=== PATIENT | female | born 1990 | race Two or more races ===

== ENCOUNTER 2016-11-30 01:07 | Emergency (ER) | payer MEDICAID ==
[~2016-11-30] VITALS: Ht 154.9 cm; Wt 122.5 kg
[~2016-11-30 01:07] MED LIST: FERR325T50 PO; PREN-96 PO
[2016-11-30] MEDS ORDERED: SODIUM CHLORIDE 0.9% 1,000 ML IVB ONE (02:17)
[2016-11-30] MEDS ORDERED: SODIUM CHLORIDE 0.9% 1,000 ML IV ONE (02:23)
[2016-11-30 02:50] LABS: Basophils # (auto) 0 uL; Basophils % (auto) 0.3 % (0.0-2.0); Eosinophils # (auto) 0.5 uL; Hemoglobin 12.2 g/dL (12.2-16.2); Lymphocytes # (auto) 2.5 uL; Lymphocytes % (auto) 28.5 % (10.0-50.0); Mean Corpuscular Volume 88.1 fL (80.0-100.0); Mean Platelet Volume 8.1 fL (7.4-10.4); Monocytes # (auto) 0.7 uL; Monocytes % (auto) 8.5 % (0.0-12.0); Neutrophils % (auto) 56.7 % (37.0-80.0); Platelet Count (auto) 270 10^3/uL (140-450); Red Cell Distribution Width 14.8 % (11.6-16.0); White Blood Cell 8.8 10^3/uL (4.4-10.8)
[2016-11-30 02:56] LABS: Urine Bilirubin Negative (Negative); Urine Color Yellow (Yellow); Urine Glucose Normal (Normal); Urine Ketone Negative (Negative); Urine Mucus FEW (None Seen); Urine Nitrite Negative (Negative); Urine RBC 1 /hpf (0 - 4); Urine Squamous Epithelial Cell FEW /hpf (<5); Urine Urobilinogen Normal (Negative)
[2016-11-30 03:33] LABS: Anion Gap 8 (5-15); Blood Urea Nitrogen 14 mg/dL (7-18); Calcium 7.9 mg/dL (8.5-10.1); Carbon Dioxide 26 mmol/L (21-32); Chloride 106 mmol/L (98-107); Glucose 86 mg/dL (74-106); Potassium 3.6 mmol/L (3.5-5.1); Sodium 140 mmol/L (136-145)
[2016-11-30 03:35] LABS: Amylase 38 U/L (25-115); Aspartate Aminotransferase 23 U/L (15-37); BUN/Creatinine Ratio 19.4; GFR African American 124 mL/min; GFR Non-African American 103 mL/min
[2016-11-30 03:40] LABS: Alkaline Phosphatase 42 U/L (45-117); Bilirubin, Total 0.3 mg/dL (0.2-1.0); Total Protein 6.6 g/dL (6.4-8.2)
[2016-11-30 03:42] LABS: Urine Blood 1+ /uL (Negative)
[2016-11-30 05:48] VITALS: BP 127/78
== END 2016-11-30 05:49 | disposition home or self-care (01) ==
LOC: ER 01:09
DX: N93.9 Abnormal uterine and vaginal bleeding, unspecified (principal); R10.9 Unspecified abdominal pain
CPT/HCPCS: 36415; 76801; 76817; 80053; 81001; 82150; 83690; 84484; 84702; 85025; 86901; 96360; 99285; J7030

== ENCOUNTER 2018-02-08 15:15 | Emergency (ER) | payer MEDICAID ==
[~2018-02-08] VITALS: Ht 154.9 cm; Wt 108.9 kg
[2018-02-08] MEDS ORDERED: KETOROLAC TROMETH 30 MG/ML 1ML VIAL IV ONE (16:15)
[2018-02-08 18:30] VITALS: BP 188/102
== END 2018-02-08 19:05 | disposition home or self-care (01) ==
LOC: EDBD 15:15 → EDUNIT# 15:15 → ER 15:18
DX: S86.812A Strain of other muscle(s) and tendon(s) at lower leg level, left leg, initial encounter (principal); W50.0XXA Accidental hit or strike by another person, initial encounter; Y93.89 Activity, other specified; Y99.8 Other external cause status; Y92.89 Other specified places as the place of occurrence of the external cause
CPT/HCPCS: 29505; 73700; 96374; 99284; J1885

== ENCOUNTER 2018-07-20 01:44 | Emergency (ER) | payer MEDICAID ==
[~2018-07-20] VITALS: Ht 154.9 cm; Wt 114.8 kg
[2018-07-20] MEDS ORDERED: SODIUM CHLORIDE 0.9% 1,000 ML IVB ONE (02:12)
[2018-07-20] MEDS ORDERED: HYDROmorphone HCL 2 MG/ML VL IV ONE (02:15)
[2018-07-20] MEDS ORDERED: ONDANSETRON HCL 4 MG/2 ML VIAL IV ONE (02:15)
[2018-07-20 02:21] LABS: Basophils # (auto) 0.1 uL; Basophils % (auto) 0.5 % (0.0-2.0); Eosinophils # (auto) 0.3 uL; Eosinophils % (auto) 3.1 % (0.0-7.0); Hematocrit 34.7 % (36.0-46.0); Hemoglobin 11.8 g/dL (12.2-16.2); Lymphocytes # (auto) 1.9 uL; Mean Corpuscular Hemoglobin 29.2 pg (28.0-32.0); Mean Corpuscular Volume 85.8 fL (80.0-100.0); Monocytes # (auto) 0.6 uL; Monocytes % (auto) 5.4 % (0.0-12.0); Neutrophils # (auto) 7.7 uL; Platelet Count (auto) 278 10^3/uL (140-450); Red Blood Cells 4.05 10^6/uL (4.0-5.20); Red Cell Distribution Width 14.1 % (11.8-14.3); White Blood Cell 10.6 10^3/uL (4.4-10.8)
[2018-07-20 02:39] LABS: Albumin 3.5 g/dL (3.4-5.0); BUN/Creatinine Ratio 20.7; Calcium 8.9 mg/dL (8.5-10.1); Potassium 3.1 mmol/L (3.5-5.1)
[2018-07-20 02:41] LABS: Bilirubin, Total 0.4 mg/dL (0.2-1.0); Total Protein 7.6 g/dL (6.4-8.2)
[2018-07-20 02:47] LABS: Urine Bacteria FEW /hpf (None Seen); Urine Blood 3+ /uL (Negative); Urine Mucus FEW (None Seen); Urine Specific Gravity 1.028 (1.001-1.035); Urine WBC 329 /hpf (0 - 5)
[2018-07-20 03:08] LABS: INR 0.91 (0.9-1.15); Partial Thromboplastin Time 22.4 sec (23.78-33.04); Prothrombin Time 9.8 sec (9.27-12.13)
[2018-07-20 05:26] VITALS: BP 177/100
== END 2018-07-20 05:59 | disposition home or self-care (01) ==
LOC: EDBD 01:44 → ER 01:49
DX: O20.0 Threatened abortion (principal); Z3A.01 Less than 8 weeks gestation of pregnancy
CPT/HCPCS: 36415; 76801; 76817; 80053; 81001; 81025; 84702; 85025; 85610; 85730; 86850; 86900; 86901; 96361; 96374; 96375; 99284; J1170; J2405; J7030

== ENCOUNTER 2019-07-06 20:49 | Inpatient (IN) | payer MEDICAID ==
[~2019-07-06] VITALS: Ht 154.9 cm; Wt 119.9 kg
[2019-07-06] MEDS ORDERED: cloNIDine HCL 0.1 MG TAB ONE (21:03)
[2019-07-06] MEDS ORDERED: IPRATROPIUM BROM 0.5 MG/2.5ML INH SOL NEB ONE (21:15)
[2019-07-06] MEDS ORDERED: ALBUTEROL SULF 2.5 MG/0.5ML(0.5%) NEB SOLN NEB ONE (21:15)
[2019-07-06] MEDS ORDERED: cloNIDine HCL 0.1 MG TAB PO ONE (21:15)
[2019-07-06 21:40] LABS: Basophils # (auto) 0.1 uL; Basophils % (auto) 0.9 % (0.0-2.0); Eosinophils # (auto) 0.2 uL; Eosinophils % (auto) 2.5 % (0.0-7.0); Hematocrit 37.5 % (36.0-46.0); Hemoglobin 12.3 g/dL (12.2-16.2); Lymphocytes % (auto) 10.1 % (10.0-50.0); Mean Corpuscular Hgb Conc. 32.7 g/dL (32.0-36.0); Mean Corpuscular Volume 82.6 fL (80.0-100.0); Monocytes # (auto) 0.6 uL; Monocytes % (auto) 6.4 % (0.0-12.0); Neutrophils # (auto) 7.7 uL; Neutrophils % (auto) 80.1 % (37.0-80.0); Nucleated Red Blood Cells % 0.1 %; Platelet Count (auto) 277 10^3/uL (140-450); Red Blood Cells 4.55 10^6/uL (4.0-5.20); White Blood Cell 9.6 10^3/uL (4.4-10.8)
[2019-07-06 21:50] LABS: Albumin 2.9 g/dL (3.4-5.0); BUN/Creatinine Ratio 8.1; Potassium 3.3 mmol/L (3.5-5.1)
[2019-07-06 21:53] LABS: Bilirubin, Total 0.5 mg/dL (0.2-1.0); Total Protein 6.6 g/dL (6.4-8.2)
[2019-07-07] MEDS ORDERED: cloNIDine HCL 0.1 MG TAB PO ONE (01:18)
[2019-07-07 01:59] LABS: Urine WBC None Seen /hpf (0 - 5)
[2019-07-07 02:26] LABS: Urine Bacteria FEW /hpf (None Seen); Urine Blood Negative /uL (Negative); Urine Hyaline Cast FEW /lpf (0 - 2); Urine Specific Gravity 1.021 (1.001-1.035)
[2019-07-07] MEDS ORDERED: LABETALOL HCL 5 MG/ML ML 20ML VIAL IV ONE ×2 (03:45→23:15)
[2019-07-07] MEDS ORDERED: ALBUTEROL SULF 2.5 MG/0.5ML(0.5%) NEB SOLN NEB ONE (03:45)
[2019-07-07] MEDS ORDERED: SODIUM CHLORIDE 0.9% 1,000 ML IV ONE (03:45)
[2019-07-07] MEDS ORDERED: IPRATROPIUM BROM 0.5 MG/2.5ML INH SOL NEB ONE (03:45)
[2019-07-07] MEDS ORDERED: IOHEXOL 350 MG/ML 100ML IJ ONE ×2 (05:57→06:03)
[2019-07-07] MEDS ORDERED: TEMAZEPAM 15 MG CAP PO PRN (07:15)
[2019-07-07] MEDS ORDERED: NITROGLYCERIN 0.4 MG SL TAB SL PRN (07:15)
[2019-07-07] MEDS ORDERED: MORPHINE SULF INJ 2 MG/ML SYRINGE 1ML IV PRN (07:15)
[2019-07-07] MEDS ORDERED: cefTRIAXone 1GM/50ML D5W 50 ML IV ONE (07:15)
[2019-07-07] MEDS ORDERED: cloNIDine HCL 0.1 MG TAB PO PRN (07:15)
[2019-07-07] MEDS ORDERED: ONDANSETRON HCL 4 MG/2 ML VIAL IV PRN (07:15)
[2019-07-07] MEDS ORDERED: ALBUTEROL SULF 2.5 MG/0.5ML(0.5%) NEB SOLN NEB PRN (07:15)
[2019-07-07] MEDS ORDERED: AZITHROMYCIN 500MG/ 250ML 250 ML IV ONE (07:15)
[2019-07-07] MEDS ORDERED: DEXTROSE (50%) 50ML SYRG IV PRN (07:45)
[2019-07-07 08:11] VITALS: BP 170/108
[2019-07-07 08:42] LABS: INR 1.05 (0.9-1.15); Partial Thromboplastin Time 24.9 sec (23.64-32.05)
--- NOTE | 2019-07-07 10:14 | NUR ---
Respiratory note: ASSESSED PT FOR PRN TX. NOT INDICATED AT THIS TIME. HR 104, SPO2 93% RA, RR 30. BS DIMINISHED. NO RESPIRATORY DISTRESS NOTED AT THIS TIME. PT KNOWS TO HAVE RT PAGED IF TX NEEDED.
[2019-07-07] MEDS: ASPirin 81 mg TAB PO SCH (10:22)
[2019-07-07] MEDS: LEVOFLOXACIN 500MG 100 ML IV SCH (10:22)
[2019-07-07] MEDS: FAMOTIDINE 20 MG TAB PO SCH ×2 (10:23→21:37)
[2019-07-07] MEDS: LISINOPRIL 20 MG TAB PO SCH (10:23)
[2019-07-07] MEDS: METOPROLOL TARTRATE 25 MG TAB PO SCH ×2 (10:23→21:37)
[2019-07-07] MEDS: InsuLIN REG 1unit/0.01ml Soln (100units/ml) SC SCH ×3 (12:00→23:34)
[2019-07-07] MEDS: ACCU-CHEK COMFORT CURVE STRIP VI SCH ×3 (13:22→23:52)
[2019-07-07] MEDS ORDERED: POTASSIUM CHL 20 Meq TABLET PO ONE (13:45)
[2019-07-07] MEDS ORDERED: amLODIPine BESYLATE 5 MG TAB PO ONE (19:45)
[2019-07-07] MEDS ORDERED: FUROSEMIDE 40 MG/4 ML VIAL IV ONE (19:45)
[2019-07-07] MEDS ORDERED: LOSARTAN POTASSIUM 50 MG TAB PO ONE (19:45)
[2019-07-07] MEDS: ACETAMINOPHEN 325 MG TAB PO PRN (19:52)
[2019-07-07 21:28] LABS: BUN/Creatinine Ratio 9.5; Calcium 7.6 mg/dL (8.5-10.1); Potassium 3.6 mmol/L (3.5-5.1)
--- NOTE | 2019-07-07 21:30 | NUR ---
RT NOTE PT WAS SEEN BY RT FOR PRN ASSESSMENT IN THE ER. PT WAS SITTING IN BED WITH CHINYERE JOHNSON AT BEDSIDE. HR 108, RR 24, BS CLEAR/DIM AT THIS TIME, POX 95% ON 3L NASAL CANNULA. PT STATES SHE IS LESS SOB AT THIS TIME AND IS NOT WHEEZING LIKE SHE WAS BEFORE. PT AWARE THERE ARE PRN TX AVAILABLE IF NEEDED. NO PRN AT THIS TIME GIVEN. CONT ORDERED Addendum: 07/07/19 at 2156 by Eugenia Marcus RT Amended: Links added.
[2019-07-07] MEDS: ATORVASTATIN 20 MG TAB PO SCH (21:37)
[2019-07-08] MEDS ORDERED: cloNIDine HCL 0.1 MG TAB PO PRN (01:15)
[2019-07-08] MEDS ORDERED: cloNIDine HCL 0.1 MG TAB ONE (02:06)
[2019-07-08] MEDS: InsuLIN REG 1unit/0.01ml Soln (100units/ml) SC SCH ×3 (06:00→17:37)
[2019-07-08 06:07] LABS: Basophils # (auto) 0.1 uL; Basophils % (auto) 0.7 % (0.0-2.0); Eosinophils # (auto) 0.6 uL; Eosinophils % (auto) 6.6 % (0.0-7.0); Hematocrit 35.5 % (36.0-46.0); Hemoglobin 11.7 g/dL (12.2-16.2); Lymphocytes % (auto) 11.4 % (10.0-50.0); Mean Corpuscular Hemoglobin 27.5 pg (28.0-32.0); Mean Corpuscular Hgb Conc. 33.1 g/dL (32.0-36.0); Mean Corpuscular Volume 83.2 fL (80.0-100.0); Monocytes # (auto) 0.7 uL; Neutrophils # (auto) 6.3 uL; Neutrophils % (auto) 73.3 % (37.0-80.0); Platelet Count (auto) 255 10^3/uL (140-450); Red Blood Cells 4.26 10^6/uL (4.0-5.20); White Blood Cell 8.6 10^3/uL (4.4-10.8)
[2019-07-08] MEDS: ACCU-CHEK COMFORT CURVE STRIP VI SCH ×3 (06:14→17:37)
[2019-07-08] MEDS: FUROSEMIDE 40 MG/4 ML VIAL IV SCH ×2 (06:15→17:40)
[2019-07-08] MEDS: ACETAMINOPHEN 325 MG TAB PO PRN ×2 (06:21→17:38)
[2019-07-08 06:24] LABS: Calcium 7.8 mg/dL (8.5-10.1); Potassium 3.7 mmol/L (3.5-5.1)
[2019-07-08 06:27] LABS: BUN/Creatinine Ratio 11.2
--- NOTE | 2019-07-08 08:35 | NUR ---
Telemetry admit from ER Patient admitted to Telemetry unit after SBAR received from RNCasandra. Patient oriented to primary RN, unit, room, bed, and unit policies regarding patient care and visiting hours. Patient now on continuous telemetry monitoring, tele box #50 and telemetry reading on arrival to unit is sinus tachycardia in the low 100's. Patient placed on bedside oxygen at 3L via nasal cannula, weighed by bed scale and encouraged to call if they need something. Bed in lowest, locked position with side rails up x2 and call light within reach. All questions and concerns addressed, patient verbalized understanding. Will continue to monitor Q1hr/PRN.
--- NOTE | 2019-07-08 09:20 | NUR ---
SPOKE TO HE STATED HE SAW PATENT IN THE ER. RN NOTIFIED.
[2019-07-08 09:27] VITALS: BP 146/96
[2019-07-08] MEDS ORDERED: LOSARTAN POTASSIUM 50 MG TAB PO SCH (10:00)
--- NOTE | 2019-07-08 10:10 | NUR ---
O2 SAT Patient 02 saturation level at 90% on 3L via nasal cannula. Patient states she feels short of breath and is using accessory muscles for breathing. Increased oxygen to 5L, reassessed saturation level which increased to 95%. Patient states she feels "much better" with increased oxygen. Will continue to monitor.
[2019-07-08] MEDS: LEVOFLOXACIN 500MG 100 ML IV SCH (10:37)
[2019-07-08] MEDS: FAMOTIDINE 20 MG TAB PO SCH ×2 (10:37→22:09)
[2019-07-08] MEDS: ASPirin 81 mg TAB PO SCH (10:38)
[2019-07-08] MEDS: METOPROLOL TARTRATE 50 MG TAB PO SCH ×2 (10:38→22:08)
[2019-07-08] MEDS: amLODIPine BESYLATE 5 MG TAB PO SCH (10:39)
[2019-07-08] MEDS: LISINOPRIL 20 MG TAB PO SCH (10:39)
[2019-07-08 13:00] VITALS: BP 116/77
--- NOTE | 2019-07-08 13:12 | NUR ---
ASSESSED PT FOR MED NEB PRN BREATHING TX, PT ON 3L NC WITH SPO2 97%, HR 98 RR 20 WITH DIMINISHED BS. PT IN NO DISTRESS. MED NEB NOT INDICATED. PT MADE AWARE OF PRN MED NEB
[2019-07-08] MEDS ORDERED: POTASSIUM CHLORIDE 8 MEQ TAB PO ONE (13:15)
[2019-07-08] MEDS ORDERED: guaiFENesin-CODEINE Liq 5 ML UD PO ONE (14:15)
[2019-07-08] MEDS ORDERED: guaiFENesin-CODEINE Liq 5 ML UD PO PRN (14:15)
--- NOTE | 2019-07-08 16:27 | NUR ---
EPISTAXIS Patient c/o small nose bleed secondary to oxygen, humidifier attached to nasal cannula. Will continue to monitor.
[2019-07-08 17:00] VITALS: BP 164/105
[2019-07-08] MEDS: PIPERACILLIN-TAZOB 3.375GM 100 ML IV SCH (17:37)
--- NOTE | 2019-07-08 17:46 | NUR ---
PYREXIA Current temperature orally, 101.8. Cooling measures taken and prn Tylenol given. Will continue to monitor.
--- NOTE | 2019-07-08 18:19 | NUR ---
IV Infiltrated IV removed, catheter intact and pressure dressing applied. New IV access obtained, via clean sterile technique by inserting 20 gauge catheter at right forearm after 1 attempt. IV secured properly. No trauma to site. Patient tolerated well.
--- NOTE | 2019-07-08 18:31 | NUR ---
REASSESSED Temperature reassessed orally, 100.2. Will continue cooling measures and reassess.
--- NOTE | 2019-07-08 19:20 | NUR ---
CLOSING NOTE Endorsed care of patient to NOC Macario WHITLOCK.
[2019-07-08] MEDS ORDERED: HYDROcodone-ACET 5/325MG TAB PO PRN (20:30)
[2019-07-08 22:00] VITALS: BP 128/90
[2019-07-08] MEDS: ATORVASTATIN 20 MG TAB PO SCH (22:07)
[2019-07-08] MEDS: DOXYCYCLINE 100 MG TAB/CAP PO SCH (22:09)
[2019-07-09] MEDS: PIPERACILLIN-TAZOB 3.375GM 100 ML IV SCH ×5 (00:34→23:35)
[2019-07-09] MEDS: ACCU-CHEK COMFORT CURVE STRIP VI SCH ×4 (00:37→18:10)
[2019-07-09] MEDS: ACETAMINOPHEN 325 MG TAB PO PRN (00:38)
[2019-07-09 05:00] VITALS: BP 126/79
[2019-07-09] MEDS: FUROSEMIDE 40 MG/4 ML VIAL IV SCH ×2 (05:38→18:10)
[2019-07-09 05:39] LABS: Basophils # (auto) 0 uL; Basophils % (auto) 0.5 % (0.0-2.0); Eosinophils # (auto) 0.4 uL; Eosinophils % (auto) 3.6 % (0.0-7.0); Hematocrit 36.1 % (36.0-46.0); Hemoglobin 11.9 g/dL (12.2-16.2); Lymphocytes % (auto) 20.8 % (10.0-50.0); Mean Corpuscular Hgb Conc. 32.9 g/dL (32.0-36.0); Mean Corpuscular Volume 82.1 fL (80.0-100.0); Monocytes # (auto) 1.1 uL; Monocytes % (auto) 11.8 % (0.0-12.0); Neutrophils # (auto) 6.2 uL; Neutrophils % (auto) 63.3 % (37.0-80.0); Nucleated Red Blood Cells % 0.1 %; Platelet Count (auto) 258 10^3/uL (140-450); Red Cell Distribution Width 15.9 % (11.8-14.3); White Blood Cell 9.7 10^3/uL (4.4-10.8)
[2019-07-09] MEDS: InsuLIN REG 1unit/0.01ml Soln (100units/ml) SC SCH ×4 (05:40→18:00)
[2019-07-09 06:08] LABS: Potassium 3.4 mmol/L (3.5-5.1)
[2019-07-09 06:27] LABS: Calcium 8.1 mg/dL (8.5-10.1)
--- NOTE | 2019-07-09 07:30 | NUR ---
Opening Shift Note Assumed care of patient, awake and alert. No S/S of distress/SOB or pain. For safety the bed is locked and in the lowest position with 2 side rails up. Instructed on POC and to call for assist PRN, will continue to monitor for changes .
[2019-07-09 09:00] VITALS: BP 144/83
[2019-07-09] MEDS: FAMOTIDINE 20 MG TAB PO SCH ×2 (10:46→21:51)
[2019-07-09] MEDS: DOXYCYCLINE 100 MG TAB/CAP PO SCH ×2 (10:47→21:50)
[2019-07-09] MEDS: amLODIPine BESYLATE 5 MG TAB PO SCH (10:47)
[2019-07-09] MEDS: ASPirin 81 mg TAB PO SCH (10:47)
[2019-07-09] MEDS: POTASSIUM CHLORIDE 8 MEQ TAB PO SCH (10:48)
[2019-07-09] MEDS: METOPROLOL TARTRATE 50 MG TAB PO SCH ×2 (10:48→21:51)
--- NOTE | 2019-07-09 12:37 | NUR ---
Respiratory note: PT ASSESSED FOR PRN MED NEB TX, NO TX DESIRED NOR INDICATED. PT STATES SHE IS FEELING MUCH BETTER, NO DISTRESS NOTED. DENIES SOB. PT AND RN AWARE TO HAVE RT PAGED IF NEEDED. HR 80 RR 16 SPO2 97% ON 2L N/C BREATH SOUNDS ARE DIMINISHED T/O.
[2019-07-09 13:00] VITALS: BP 153/82
[2019-07-09] MEDS ORDERED: LISI40TA PO (16:23)
[2019-07-09 17:00] VITALS: BP 149/83
--- NOTE | 2019-07-09 18:04 | NUR ---
Respiratory note: ASSESSMENT FOR PRN MED NEB TX. HR 77, SPO2 98% ON 2L NC, RR 17, BS CLEAR/DIMINISHED. PT PRESENTING NO RESPIRATORY DISTRESS AT THIS TIME. MED NEB TX NOT INDICATED. PT AWARE TO HAVE RN PAGE RT IF MED NEB TX IS NEEDED. WILL CONTINUE TO MONITOR.
[2019-07-09 21:47] VITALS: BP 137/96
[2019-07-09] MEDS: ATORVASTATIN 20 MG TAB PO SCH (21:50)
[2019-07-10 05:12] VITALS: BP 179/96
[2019-07-10 05:43] LABS: Basophils # (auto) 0.1 uL; Basophils % (auto) 0.7 % (0.0-2.0); Eosinophils # (auto) 1.1 uL; Eosinophils % (auto) 12.5 % (0.0-7.0); Hematocrit 38.6 % (36.0-46.0); Hemoglobin 13.1 g/dL (12.2-16.2); Lymphocytes # (auto) 2.4 uL; Lymphocytes % (auto) 27.6 % (10.0-50.0); Mean Corpuscular Hemoglobin 27.9 pg (28.0-32.0); Mean Corpuscular Volume 82.1 fL (80.0-100.0); Monocytes # (auto) 0.7 uL; Monocytes % (auto) 8.4 % (0.0-12.0); Neutrophils # (auto) 4.4 uL; Neutrophils % (auto) 50.8 % (37.0-80.0); Platelet Count (auto) 279 10^3/uL (140-450); Red Cell Distribution Width 15.6 % (11.8-14.3); White Blood Cell 8.8 10^3/uL (4.4-10.8)
[2019-07-10 05:59] LABS: Potassium 3.4 mmol/L (3.5-5.1)
[2019-07-10] MEDS: InsuLIN REG 1unit/0.01ml Soln (100units/ml) SC SCH ×3 (06:00→13:10)
[2019-07-10] MEDS: ACCU-CHEK COMFORT CURVE STRIP VI SCH ×3 (06:00→13:00)
[2019-07-10] MEDS: PIPERACILLIN-TAZOB 3.375GM 100 ML IV SCH ×2 (06:14→12:00)
[2019-07-10 06:19] LABS: Albumin 2.5 g/dL (3.4-5.0); BUN/Creatinine Ratio 13.9; Bilirubin, Total 0.4 mg/dL (0.2-1.0); Calcium 8.3 mg/dL (8.5-10.1); Phosphorus 3.7 mg/dL (2.5-4.90); Total Protein 6.5 g/dL (6.4-8.2)
[2019-07-10] MEDS: FUROSEMIDE 40 MG/4 ML VIAL IV SCH (06:31)
[2019-07-10 09:00] VITALS: BP 158/85
--- NOTE | 2019-07-10 09:15 | NUR ---
Respiratory note: HR 92, RR 14, SPO2 98% ON 2 L NC, BS CLEAR. PRN MED NEB TX NOT INDICATED AT THIS TIME. NO SIGNS OR SYMPTOMS OF RESPIRATORY DISTRESS NOTED. PT INFORMED TO HIT CALL BUTTON IF FEELING SOB OR WHEEZING.
[2019-07-10 09:44] VITALS: BP 174/92
[2019-07-10] MEDS: DOXYCYCLINE 100 MG TAB/CAP PO SCH (10:00)
[2019-07-10] MEDS: POTASSIUM CHLORIDE 8 MEQ TAB PO SCH (10:00)
[2019-07-10] MEDS: amLODIPine BESYLATE 5 MG TAB PO SCH (10:00)
[2019-07-10] MEDS: ASPirin 81 mg TAB PO SCH (10:00)
[2019-07-10] MEDS: METOPROLOL TARTRATE 50 MG TAB PO SCH (10:00)
[2019-07-10] MEDS: FAMOTIDINE 20 MG TAB PO SCH (10:00)
[2019-07-10 13:00] VITALS: BP 160/96
[2019-07-10] MEDS ORDERED: ATOR20TA50 PO (14:31)
[2019-07-10] MEDS ORDERED: MET50T PO (14:31)
[2019-07-10] MEDS ORDERED: ASPI81CH43 PO (14:31)
[2019-07-10] MEDS ORDERED: POTA8TAB2 PO (14:31)
[2019-07-10] MEDS ORDERED: DOX100T PO (14:31)
[2019-07-10] MEDS ORDERED: FAM20T PO (14:31)
[2019-07-10] MEDS ORDERED: NIF10C PO (14:31)
--- NOTE | 2019-07-10 15:58 | NUR ---
Nutrition Assessment Est energy needs: 1356-8685 kcals ( 23-25 kcals/kg actual body wt) Est protein needs: 96-120 gms/day (0.8-1.0 gms/kgactual body wt) Will continue to reassess pertinent lab values, skin status and weight trends prn. Addendum: 07/10/19 at [address] Amended: Links added.
--- NOTE | 2019-07-10 16:40 | NUR ---
Discharge instructions given as ordered. Encourage to follow up with PCP as instructed. All questions and concerns addressed. Patient verbalized understanding. Medication reconciliation form completed and copy given to patient. IV removed with catheter intact, pressure dressing applied, . Telemetry unit returned to ICU. Patient taken to vehicle via wheelchair with all personal belongings, accompanied by staff and family member. No distress noted at time of departure.
== END 2019-07-10 17:16 | disposition home or self-care (01) | DRG 139 ==
LOC: ER 20:52 → TELE 07-07 07:13 → TELE-WESTW 07-08 08:33
PROVIDERS: ADMIT Nurse Practitioner; ATTEND Internal Medicine Nephrology
DX: J18.9 Pneumonia, unspecified organism (principal); J96.01 Acute respiratory failure with hypoxia; I50.23 Acute on chronic systolic (congestive) heart failure; N17.9 Acute kidney failure, unspecified; E66.01 Morbid (severe) obesity due to excess calories; I27.20 Pulmonary hypertension, unspecified; I31.3 Pericardial effusion (noninflammatory); Z68.42 Body mass index [BMI] 45.0-49.9, adult; I13.0 Hypertensive heart and chronic kidney disease with heart failure and stage 1 through stage 4 chronic kidney disease, or unspecified chronic kidney disease; I16.0 Hypertensive urgency; I16.1 Hypertensive emergency; G47.33 Obstructive sleep apnea (adult) (pediatric); E16.2 Hypoglycemia, unspecified; I45.10 Unspecified right bundle-branch block; N18.9 Chronic kidney disease, unspecified; Z82.5 Family history of asthma and other chronic lower respiratory diseases; Z83.3 Family history of diabetes mellitus; Z82.49 Family history of ischemic heart disease and other diseases of the circulatory system; Z82.3 Family history of stroke; Z81.8 Family history of other mental and behavioral disorders
CPT/HCPCS: 36415; 70450; 71045; 71275; 80048; 80053; 80061; 81001; 81025; 82088; 82533; 82962; 83036; 83605; 83735; 83835; 83880; 84100; 84244; 84443; 84484; 85025; 85379; 85610; 85652; 85730; 86038; 87804; 93005; 93306; 93970; 94640; 96365; 96367; 96375; G0378; J0696; J1815; J1956; J2543

== ENCOUNTER 2019-09-28 06:02 | Inpatient (IN) | payer MEDICAID ==
[2019-09-28] VITALS (30 sets, daily range): BP systolic 115–188; BP diastolic 61–103
[~2019-09-28] VITALS: Ht 160 cm; Wt 112.4 kg
[~2019-09-28 06:02] MED LIST changes: +ASPI81CH43 PO; +ATOR20TA50 PO; +DOX100T PO; +FAM20T PO; -FERR325T50 PO; +MET50T PO; +NIF10C PO; +POTA8TAB2 PO; -PREN-96 PO
[2019-09-28] MEDS ORDERED: cloNIDine HCL 0.1 MG TAB ONE (07:06)
[2019-09-28] MEDS ORDERED: cloNIDine HCL 0.1 MG TAB PO ONE (07:15)
[2019-09-28] MEDS ORDERED: NICARDIPINE 25MG/250ML BAG KIT 250 ML IV ONE (07:53)
[2019-09-28] MEDS ORDERED: SODIUM CHLORIDE 0.9% 1,000 ML IV ONE (07:57)
[2019-09-28] MEDS ORDERED: METOCLOPRAMIDE HCL 5MG/ml INJ 2ml VIAL IV ONE (08:00)
[2019-09-28] MEDS ORDERED: MORPHINE SULFATE 4 MG/ML SYR/VIAL IV ONE (08:00)
[2019-09-28] MEDS: NICARDIPINE 25MG/250ML BAG KIT 250 ML IV SCH ×3 (08:16→19:19)
[2019-09-28 08:17] LABS: Basophils # (auto) 0.1 uL; Basophils % (auto) 0.8 % (0.0-2.0); Eosinophils # (auto) 0.8 uL; Eosinophils % (auto) 7.2 % (0.0-7.0); Hematocrit 37.4 % (36.0-46.0); Hemoglobin 12.5 g/dL (12.2-16.2); Lymphocytes # (auto) 1.7 uL; Lymphocytes % (auto) 15.6 % (10.0-50.0); Mean Corpuscular Hgb Conc. 33.4 g/dL (32.0-36.0); Mean Corpuscular Volume 83.9 fL (80.0-100.0); Monocytes # (auto) 0.5 uL; Monocytes % (auto) 5.1 % (0.0-12.0); Neutrophils # (auto) 7.6 uL; Neutrophils % (auto) 71.3 % (37.0-80.0); Nucleated Red Blood Cells % 0.1 %; Platelet Count (auto) 284 10^3/uL (140-450); Red Blood Cells 4.46 10^6/uL (4.0-5.20); Red Cell Distribution Width 17.3 % (11.8-14.3); White Blood Cell 10.6 10^3/uL (4.4-10.8)
[2019-09-28 08:35] LABS: Calcium 8.6 mg/dL (8.5-10.1)
[2019-09-28 08:40] LABS: Bilirubin, Total 0.6 mg/dL (0.2-1.0); Total Protein 6.9 g/dL (6.4-8.2)
[2019-09-28 08:42] LABS: Magnesium 2.1 mg/dL (1.6-2.6)
[2019-09-28 08:51] LABS: Potassium 2.8 mmol/L (3.5-5.1)
[2019-09-28] MEDS ORDERED: POTASSIUM EFFERVESENT TAB 25 MEQ ONE (08:53)
[2019-09-28 08:54] LABS: Beta HCG, Quantitative < 1 mlU/mL (1-3); Thyroid Stimulating Hormone 1.01 uIU/mL (0.358-3.74)
[2019-09-28] MEDS ORDERED: POTASSIUM EFFERVESENT TAB 25 MEQ GT ONE (09:00)
[2019-09-28 09:45] LABS: INR 0.97 (0.9-1.15); Partial Thromboplastin Time 24.9 sec (23.64-32.05)
[2019-09-28 10:55] LABS: Urine WBC None Seen /hpf (0 - 5)
[2019-09-28 11:05] LABS: Urine Bacteria NONE SEEN /hpf (None Seen); Urine Blood Negative /uL (Negative); Urine Specific Gravity 1.008 (1.001-1.035)
[2019-09-28] MEDS ORDERED: FUROSEMIDE 20 MG/2 ML VIAL IV ONE (14:00)
[2019-09-28] MEDS ORDERED: MORPHINE SULF INJ 2 MG/ML SYRINGE 1ML IV PRN ×2 (14:00)
[2019-09-28] MEDS ORDERED: NITROGLYCERIN 0.4 MG SL TAB SL PRN (14:00)
[2019-09-28] MEDS ORDERED: ONDANSETRON HCL 4 MG/2 ML VIAL IV PRN (14:00)
[2019-09-28] MEDS ORDERED: ENALAPRILAT 1.25 MG/ML-1ML VIAL IV PRN (14:00)
[2019-09-28] MEDS ORDERED: CARVEDILOL 3.125 MG TAB PO ONE (14:00)
[2019-09-28] MEDS ORDERED: MEPERIDINE HCL (25 MG/ML) 1ML VIAL IV PRN (16:30)
[2019-09-28] MEDS ORDERED: ACETAMINOPHEN 500 MG TAB PO PRN (16:30)
[2019-09-28] MEDS: metroNIDAZOLE 500MG/100ML 100 ML IV SCH ×2 (17:18→21:55)
[2019-09-28 18:08] LABS: Magnesium 1.8 mg/dL (1.6-2.6)
[2019-09-28 18:13] LABS: Potassium 2.6 mmol/L (3.5-5.1)
[2019-09-28] MEDS ORDERED: MAGNESIUM SULFATE 1GM/100ML 100 ML IV ONE (18:30)
[2019-09-28] MEDS ORDERED: POTASSIUM CHLORIDE 40 MEQ, LIDOCAINE 1% (LOCAL ANESTH.) 4 ML in SODIUM CHL 0.9% 100 ML IV ONE (18:30)
[2019-09-28] MEDS: HYDROcodone-ACET 10/325MG TAB PO PRN (21:55)
[2019-09-28] MEDS: CARVEDILOL 3.125 MG TAB PO SCH (21:56)
[2019-09-29] VITALS (53 sets, daily range): BP systolic 112–178; BP diastolic 57–101
[2019-09-29] MEDS: NICARDIPINE 25MG/250ML BAG KIT 250 ML IV SCH ×3 (00:33→09:15)
[2019-09-29 04:24] LABS: Basophils # (auto) 0.1 uL; Basophils % (auto) 0.6 % (0.0-2.0); Eosinophils # (auto) 0.8 uL; Hematocrit 36.5 % (36.0-46.0); Hemoglobin 12.1 g/dL (12.2-16.2); Lymphocytes # (auto) 1.5 uL; Mean Corpuscular Hemoglobin 27.8 pg (28.0-32.0); Monocytes # (auto) 0.6 uL; Monocytes % (auto) 5.9 % (0.0-12.0); Neutrophils # (auto) 7.6 uL; Neutrophils % (auto) 71.5 % (37.0-80.0); Nucleated Red Blood Cells % 0.1 %; Platelet Count (auto) 293 10^3/uL (140-450); Red Blood Cells 4.34 10^6/uL (4.0-5.20); Red Cell Distribution Width 16.8 % (11.8-14.3); White Blood Cell 10.6 10^3/uL (4.4-10.8)
[2019-09-29 04:46] LABS: BUN/Creatinine Ratio 11.3; Calcium 8.1 mg/dL (8.5-10.1)
[2019-09-29] MEDS: metroNIDAZOLE 500MG/100ML 100 ML IV SCH ×3 (05:45→22:34)
[2019-09-29] MEDS: CARVEDILOL 3.125 MG TAB PO SCH ×2 (08:05→18:51)
[2019-09-29] MEDS ORDERED: LISINOPRIL 10 MG TAB PO SCH (10:00)
[2019-09-29] MEDS: LEVOFLOXACIN 500MG 100 ML IV SCH (10:25)
[2019-09-29] MEDS ORDERED: POTASSIUM CHL 20 Meq TABLET PO ONE (10:45)
[2019-09-29] MEDS ORDERED: POTASSIUM EFFERVESENT TAB 25 MEQ PO ONE (10:45)
[2019-09-29] MEDS ORDERED: LOSARTAN POTASSIUM 50 MG TAB PO ONE (11:30)
[2019-09-29] MEDS ORDERED: HCTZ 25 MG TAB PO ONE (11:30)
[2019-09-29] MEDS ORDERED: amLODIPine BESYLATE 5 MG TAB PO ONE (15:00)
[2019-09-29] MEDS ORDERED: SPIRONOLACTONE 25 MG TAB PO ONE (15:00)
[2019-09-30] VITALS (19 sets, daily range): BP systolic 129–173; BP diastolic 69–103
[2019-09-30 05:37] LABS: BUN/Creatinine Ratio 15.5; Calcium 8.1 mg/dL (8.5-10.1)
[2019-09-30] MEDS: metroNIDAZOLE 500MG/100ML 100 ML IV SCH (05:50)
[2019-09-30] MEDS: CARVEDILOL 3.125 MG TAB PO SCH ×2 (08:00→18:47)
[2019-09-30] MEDS: LEVOFLOXACIN 500MG 100 ML IV SCH (10:00)
[2019-09-30] MEDS: HCTZ 25 MG TAB PO SCH (10:37)
[2019-09-30] MEDS: LOSARTAN POTASSIUM 50 MG TAB PO SCH (10:38)
[2019-09-30] MEDS: amLODIPine BESYLATE 5 MG TAB PO SCH (10:39)
[2019-09-30] MEDS: SPIRONOLACTONE 25 MG TAB PO SCH (10:39)
[2019-09-30] MEDS ORDERED: metroNIDAZOLE 500MG/100ML 100 ML IV SCH (14:00)
[2019-09-30] MEDS ORDERED: AML5T PO (14:43)
[2019-09-30] MEDS ORDERED: LOSA-69 PO (14:43)
[2019-09-30] MEDS ORDERED: SPIR25TA88 PO (14:43)
[2019-09-30] MEDS ORDERED: HCTZ25T PO (14:43)
[2019-09-30] MEDS ORDERED: CAR125T PO (14:44)
[2019-09-30] MEDS ORDERED: LEVOFLOXACIN 500MG 100 ML IV SCH (16:00)
[2019-09-30] MEDS: metroNIDAZOLE 500 MG TAB PO SCH (22:00)
[2019-10-01] VITALS (26 sets, daily range): BP systolic 137–172; BP diastolic 67–111
[2019-10-01] MEDS: HYDROcodone-ACET 10/325MG TAB PO PRN (05:31)
[2019-10-01] MEDS: CARVEDILOL 3.125 MG TAB PO SCH ×2 (08:54→20:54)
[2019-10-01] MEDS: metroNIDAZOLE 500 MG TAB PO SCH (10:15)
[2019-10-01] MEDS: LOSARTAN POTASSIUM 50 MG TAB PO SCH (10:17)
[2019-10-01] MEDS: amLODIPine BESYLATE 5 MG TAB PO SCH (10:18)
[2019-10-01] MEDS: SPIRONOLACTONE 25 MG TAB PO SCH (10:18)
[2019-10-01] MEDS: HCTZ 25 MG TAB PO SCH (10:19)
[2019-10-01] MEDS ORDERED: ASPirin 81 mg TAB PO ONE (14:00)
[2019-10-01] MEDS ORDERED: ACETAMINOPHEN 500 MG TAB PO PRN (14:00)
[2019-10-01] MEDS ORDERED: FUROSEMIDE 20 MG/2 ML VIAL IV ONE (14:00)
[2019-10-01] MEDS: ENOXAPARIN SOD 40 MG/0.4 ML SYRINGE SC SCH (20:57)
[2019-10-01] MEDS: FUROSEMIDE 20 MG/2 ML VIAL IV SCH (20:57)
[2019-10-01] MEDS ORDERED: ATORVASTATIN 20 MG TAB PO SCH (22:00)
[2019-10-02] MEDS: FUROSEMIDE 20 MG/2 ML VIAL IV SCH (05:18)
[2019-10-02 05:21] VITALS: BP 167/114
[2019-10-02 07:01] LABS: Basophils # (auto) 0.1 uL; Basophils % (auto) 1.1 % (0.0-2.0); Eosinophils # (auto) 0.4 uL; Eosinophils % (auto) 5.4 % (0.0-7.0); Hematocrit 39.6 % (36.0-46.0); Hemoglobin 13.3 g/dL (12.2-16.2); Lymphocytes % (auto) 12.5 % (10.0-50.0); Mean Corpuscular Hgb Conc. 33.6 g/dL (32.0-36.0); Mean Corpuscular Volume 83.2 fL (80.0-100.0); Monocytes # (auto) 0.9 uL; Monocytes % (auto) 10.7 % (0.0-12.0); Neutrophils # (auto) 5.8 uL; Neutrophils % (auto) 70.3 % (37.0-80.0); Platelet Count (auto) 315 10^3/uL (140-450); Red Blood Cells 4.75 10^6/uL (4.0-5.20); Red Cell Distribution Width 17.3 % (11.8-14.3); White Blood Cell 8.3 10^3/uL (4.4-10.8)
[2019-10-02 07:26] LABS: Partial Thromboplastin Time 26.6 sec (23.64-32.05)
[2019-10-02 07:32] LABS: Magnesium 1.7 mg/dL (1.6-2.6); Potassium 3.6 mmol/L (3.5-5.1)
[2019-10-02 07:39] LABS: Albumin 2.8 g/dL (3.4-5.0); BUN/Creatinine Ratio 14.3; Bilirubin, Total 0.4 mg/dL (0.2-1.0); Calcium 9.1 mg/dL (8.5-10.1); Total Protein 7.2 g/dL (6.4-8.2)
[2019-10-02] MEDS: LOSARTAN POTASSIUM 50 MG TAB PO SCH (07:46)
[2019-10-02] MEDS: amLODIPine BESYLATE 5 MG TAB PO SCH (07:47)
[2019-10-02] MEDS: HCTZ 25 MG TAB PO SCH (07:47)
[2019-10-02] MEDS: SPIRONOLACTONE 25 MG TAB PO SCH (07:48)
[2019-10-02] MEDS: CARVEDILOL 3.125 MG TAB PO SCH (07:49)
[2019-10-02] MEDS: ENOXAPARIN SOD 40 MG/0.4 ML SYRINGE SC SCH (07:55)
[2019-10-02 09:00] VITALS: BP 150/90
[2019-10-02] MEDS ORDERED: ASPirin 81 mg TAB PO SCH (10:00)
[2019-10-02 12:30] VITALS: BP 153/94
[2019-10-02 14:00] VITALS: BP 150/90
[2019-10-02] MEDS ORDERED: DOX100T PO (16:51)
[2019-10-02] MEDS ORDERED: NIFE1TAB30 PO (16:51)
[2019-10-02] MEDS ORDERED: CARV6.2551 PO (16:51)
[2019-10-02] MEDS ORDERED: ATOR20TA50 PO (16:51)
[2019-10-02] MEDS ORDERED: ASPI81CH43 PO (16:51)
[2019-10-02] MEDS ORDERED: FURO40TA4 PO (16:51)
[2019-10-02] MEDS ORDERED: SPIR50TA5 PO (16:51)
[2019-10-02] MEDS ORDERED: FAM20T PO (16:51)
== END 2019-10-02 14:52 | disposition home or self-care (01) ==
LOC: ER 06:02 → OVERFLOW 06:03 → ICU WEST 16:09 → TELE-EAST 10-01 23:14
PROVIDERS: ADMIT Nurse Practitioner Acute Care; ATTEND Internal Medicine Nephrology
DX: K80.20 Calculus of gallbladder without cholecystitis without obstruction (principal); N17.0 Acute kidney failure with tubular necrosis; I50.43 Acute on chronic combined systolic (congestive) and diastolic (congestive) heart failure; E44.0 Moderate protein-calorie malnutrition; I13.0 Hypertensive heart and chronic kidney disease with heart failure and stage 1 through stage 4 chronic kidney disease, or unspecified chronic kidney disease; I16.1 Hypertensive emergency; J91.8 Pleural effusion in other conditions classified elsewhere; R09.89 Other specified symptoms and signs involving the circulatory and respiratory systems; E87.6 Hypokalemia; E66.01 Morbid (severe) obesity due to excess calories; N18.3 Chronic kidney disease, stage 3 (moderate); E88.09 Other disorders of plasma-protein metabolism, not elsewhere classified; I16.9 Hypertensive crisis, unspecified; Z68.41 Body mass index [BMI] 40.0-44.9, adult; I80.8 Phlebitis and thrombophlebitis of other sites; Z79.82 Long term (current) use of aspirin; Z81.8 Family history of other mental and behavioral disorders; Z82.3 Family history of stroke; Z82.49 Family history of ischemic heart disease and other diseases of the circulatory system; Z82.5 Family history of asthma and other chronic lower respiratory diseases; Z83.3 Family history of diabetes mellitus
CPT/HCPCS: 36415; 71046; 76705; 78226; 80048; 80053; 80061; 81001; 82533; 83036; 83690; 83735; 83880; 84100; 84132; 84443; 84484; 84702; 85025; 85610; 85652; 85730; 86038; 87081; 93005; 93306; 93971; 93975; 96361; 96365; 96367; 96375; G0378; J1956; J2001; J3490

== ENCOUNTER 2021-01-19 04:59 | Inpatient (IN) | payer MEDICAID ==
[~2021-01-19] VITALS: Ht 152.4 cm; Wt 136.0 kg
[~2021-01-19 04:59] MED LIST changes: +CARV6.2551 PO; -FAM20T PO; +FAMO20TA10 PO; +FURO40TA4 PO; -MET50T PO; -NIF10C PO; +NIFE1TAB30 PO; -POTA8TAB2 PO; +SPIR50TA5 PO
[2021-01-19] MEDS ORDERED: cloNIDine HCL 0.1 MG TAB PO ONE (05:15)
[2021-01-19] MEDS ORDERED: cloNIDine HCL 0.1 MG TAB ONE (05:18)
[2021-01-19 06:00] LABS: Basophils # (auto) 0.1 10 ^3/uL (0-0.2); Basophils % (auto) 0.9 % (0.0-2.0); Eosinophils # (auto) 0.4 10 ^3/uL (0-0.8); Eosinophils % (auto) 3.7 % (0.0-7.0); Hematocrit 35.9 % (36.0-46.0); Hemoglobin 12.4 g/dL (12.2-16.2); Lymphocytes % (auto) 19.3 % (10.0-50.0); Mean Corpuscular Hgb Conc. 34.5 g/dL (32.0-36.0); Monocytes # (auto) 0.6 10 ^3/uL (0-1.3); Monocytes % (auto) 5.5 % (0.0-12.0); Neutrophils # (auto) 7.2 10 ^3/uL (1.6-8.6); Neutrophils % (auto) 70.6 % (37.0-80.0); Nucleated Red Blood Cells % 0.2 %; Platelet Count (auto) 251 10^3/uL (140-450); Red Blood Cells 4.27 10^6/uL (4.0-5.20); Red Cell Distribution Width 16.5 % (11.8-14.3); White Blood Cell 10.3 10^3/uL (4.4-10.8)
[2021-01-19] MEDS ORDERED: FUROSEMIDE 40 MG/4 ML VIAL IV ONE (06:30)
[2021-01-19 06:44] LABS: Albumin 2.8 g/dL (3.4-5.0); BUN/Creatinine Ratio 19.3; Bilirubin, Total 0.5 mg/dL (0.2-1.0); Calcium 8.6 mg/dL (8.5-10.1); Total Protein 6.6 g/dL (6.4-8.2)
[2021-01-19 06:56] LABS: Potassium 2.9 mmol/L (3.5-5.1)
[2021-01-19] MEDS ORDERED: POTASSIUM EFFERVESENT TAB 25 MEQ PO ONE ×2 (07:30→11:45)
[2021-01-19] MEDS ORDERED: SPIRONOLACTONE 25 MG TAB PO ONE (07:30)
[2021-01-19 08:24] LABS: Urine Bacteria FEW /hpf (None Seen); Urine Blood 2+ /uL (Negative); Urine Specific Gravity 1.004 (1.001-1.035); Urine WBC 1 /hpf (0 - 5)
[2021-01-19 08:34] LABS: INR 0.94 (0.9-1.15); Partial Thromboplastin Time 23.3 sec (23.0-31.2)
[2021-01-19] MEDS ORDERED: ONDANSETRON HCL 4 MG/2 ML VIAL IV ONE (10:00)
[2021-01-19] MEDS ORDERED: MORPHINE SULF INJ 2 MG/ML SYRINGE 1ML IV ONE (10:00)
[2021-01-19] MEDS ORDERED: MORPHINE SULF INJ 2 MG/ML SYRINGE 1ML ONE (10:00)
[2021-01-19] MEDS ORDERED: ONDANSETRON HCL 4 MG/2 ML VIAL ONE (10:01)
[2021-01-19 10:41] LABS: Alcohol, Urine < 3.0 mg/dL (0-10); Amphetamine Screen, Urine NEGATIVE (NEGATIVE); Barbiturate Scree,Urine NEGATIVE (NEGATIVE); Benzodiazephine Screen, Urine NEGATIVE (NEGATIVE); Cannabinoid Screen, Urine NEGATIVE (NEGATIVE); Cocaine Screen, Urine NEGATIVE (NEGATIVE); Opiate Scree,Urine NEGATIVE (NEGATIVE); Phencyclidine Screen, Urine NEGATIVE (NEGATIVE)
[2021-01-19] MEDS ORDERED: ACETAMINOPHEN 500 MG TAB PO PRN (11:30)
[2021-01-19] MEDS ORDERED: MILK OF MAGNESIA 30ML SUSP PO PRN (11:30)
[2021-01-19] MEDS ORDERED: TEMAZEPAM 15 MG CAP PO PRN (11:30)
[2021-01-19] MEDS ORDERED: PROMETHAZINE HCL 25 MG/ML 1ML IV PRN (11:30)
[2021-01-19] MEDS: ENALAPRIL MALEATE 10 MG TAB PO SCH (11:47)
[2021-01-19] MEDS: POTASSIUM CHL 20MEQ/100ML 100 ML IV SCH ×2 (11:57→13:56)
[2021-01-19] MEDS: MORPHINE SULF INJ 2 MG/ML SYRINGE 1ML IV PRN (12:00)
[2021-01-19] MEDS ORDERED: MORPHINE SULF INJ 2 MG/ML SYRINGE 1ML IV PRN (13:00)
[2021-01-19] MEDS ORDERED: NITROGLYCERIN 0.4 MG SL TAB SL PRN (13:00)
[2021-01-19] MEDS: ISOSORBIDE DINITRATE 10 MG TAB PO SCH ×2 (14:04→22:17)
[2021-01-19] MEDS: SODIUM CHLOR 0.9% PF (SALINE LOCK) 10ML VIAL/SYR IV SCH ×2 (14:12→22:17)
[2021-01-19] MEDS ORDERED: ASPirin 81 mg TAB PO ONE (15:30)
[2021-01-19] MEDS ORDERED: ENOXAPARIN SOD 40 MG/0.4 ML SYRINGE SC ONE (15:30)
[2021-01-19] MEDS: FAMOTIDINE 20 MG TAB PO SCH (22:16)
[2021-01-19] MEDS: ATORVASTATIN 20 MG TAB PO SCH (22:16)
[2021-01-19] MEDS: CARVEDILOL 12.5 MG TAB PO SCH (22:17)
[2021-01-20] MEDS: HEPARIN SODIUM (PORCINE) 5000 UNITS/ML 1ML VIAL SC SCH ×2 (02:31→06:00)
[2021-01-20 04:17] LABS: Basophils # (auto) 0.1 10 ^3/uL (0-0.2); Eosinophils # (auto) 0.4 10 ^3/uL (0-0.8); Eosinophils % (auto) 3.8 % (0.0-7.0); Hematocrit 33.3 % (36.0-46.0); Hemoglobin 11.2 g/dL (12.2-16.2); Lymphocytes # (auto) 1.7 10 ^3/uL (0.4-5.4); Lymphocytes % (auto) 18.1 % (10.0-50.0); Mean Corpuscular Hemoglobin 28.7 pg (28.0-32.0); Mean Corpuscular Hgb Conc. 33.7 g/dL (32.0-36.0); Mean Corpuscular Volume 85.1 fL (80.0-100.0); Monocytes # (auto) 0.5 10 ^3/uL (0-1.3); Monocytes % (auto) 5.4 % (0.0-12.0); Neutrophils # (auto) 6.9 10 ^3/uL (1.6-8.6); Neutrophils % (auto) 71.7 % (37.0-80.0); Nucleated Red Blood Cells % 0.1 %; Platelet Count (auto) 261 10^3/uL (140-450); Red Blood Cells 3.91 10^6/uL (4.0-5.20); White Blood Cell 9.7 10^3/uL (4.4-10.8)
[2021-01-20 04:40] LABS: Albumin 2.5 g/dL (3.4-5.0); Calcium 7.7 mg/dL (8.5-10.1); Potassium 3.6 mmol/L (3.5-5.1)
[2021-01-20 04:45] LABS: BUN/Creatinine Ratio 19.1; Bilirubin, Total 0.4 mg/dL (0.2-1.0)
[2021-01-20] MEDS: SODIUM CHLOR 0.9% PF (SALINE LOCK) 10ML VIAL/SYR IV SCH ×3 (06:00→21:18)
[2021-01-20] MEDS: ISOSORBIDE DINITRATE 10 MG TAB PO SCH ×3 (06:00→21:20)
[2021-01-20] MEDS: FUROSEMIDE 40 MG/4 ML VIAL IV SCH (09:59)
[2021-01-20] MEDS: NIFEdipine ER 30 MG TAB PO SCH (10:00)
[2021-01-20] MEDS ORDERED: ENOXAPARIN SOD 40 MG/0.4 ML SYRINGE SC SCH (10:00)
[2021-01-20] MEDS: SPIRONOLACTONE 25 MG TAB PO SCH (10:00)
[2021-01-20] MEDS: ENALAPRIL MALEATE 10 MG TAB PO SCH (10:00)
[2021-01-20] MEDS: FAMOTIDINE 20 MG TAB PO SCH ×2 (10:02→21:20)
[2021-01-20] MEDS: POTASSIUM CHL 20 Meq TABLET PO SCH (10:03)
[2021-01-20] MEDS: CARVEDILOL 12.5 MG TAB PO SCH ×2 (10:05→21:19)
[2021-01-20] MEDS: ASPirin 81 mg TAB PO SCH (10:06)
[2021-01-20] MEDS: ENOXAPARIN SOD 100 MG/1 ML SYRINGE SC SCH ×2 (11:25→21:21)
[2021-01-20 15:39] VITALS: BP 149/83
[2021-01-20] MEDS ORDERED: LOSA25TA38 PO (17:16)
[2021-01-20 21:14] VITALS: BP 188/111
[2021-01-20] MEDS: ATORVASTATIN 20 MG TAB PO SCH (21:20)
[2021-01-20] MEDS ORDERED: ENOXAPARIN SOD 100 MG/1 ML SYRINGE SC SCH (22:00)
[2021-01-21] VITALS (12 sets, daily range): BP systolic 147–191; BP diastolic 79–113
[2021-01-21] MEDS: LABETALOL HCL 5 MG/ML ML 20ML VIAL IV PRN ×3 (00:06→07:37)
[2021-01-21 05:24] LABS: Basophils # (auto) 0.1 10 ^3/uL (0-0.2); Basophils % (auto) 0.6 % (0.0-2.0); Eosinophils # (auto) 0.4 10 ^3/uL (0-0.8); Eosinophils % (auto) 3.7 % (0.0-7.0); Hematocrit 34.2 % (36.0-46.0); Hemoglobin 11.5 g/dL (12.2-16.2); Lymphocytes # (auto) 1.8 10 ^3/uL (0.4-5.4); Mean Corpuscular Hemoglobin 28.7 pg (28.0-32.0); Mean Corpuscular Hgb Conc. 33.7 g/dL (32.0-36.0); Mean Corpuscular Volume 85.1 fL (80.0-100.0); Monocytes # (auto) 0.7 10 ^3/uL (0-1.3); Monocytes % (auto) 6.7 % (0.0-12.0); Nucleated Red Blood Cells % 0.1 %; Platelet Count (auto) 262 10^3/uL (140-450); Red Blood Cells 4.01 10^6/uL (4.0-5.20); Red Cell Distribution Width 17.2 % (11.8-14.3); White Blood Cell 9.8 10^3/uL (4.4-10.8)
[2021-01-21 05:42] LABS: Albumin 2.7 g/dL (3.4-5.0); Calcium 8.6 mg/dL (8.5-10.1); Potassium 3.7 mmol/L (3.5-5.1)
[2021-01-21 05:52] LABS: BUN/Creatinine Ratio 21.3; Bilirubin, Total 0.3 mg/dL (0.2-1.0); Total Protein 6.4 g/dL (6.4-8.2)
[2021-01-21] MEDS: ISOSORBIDE DINITRATE 10 MG TAB PO SCH ×3 (06:00→21:36)
[2021-01-21] MEDS: SODIUM CHLOR 0.9% PF (SALINE LOCK) 10ML VIAL/SYR IV SCH ×3 (06:19→21:36)
[2021-01-21] MEDS: MORPHINE SULF INJ 2 MG/ML SYRINGE 1ML IV PRN (08:24)
[2021-01-21] MEDS: ENOXAPARIN SOD 100 MG/1 ML SYRINGE SC SCH ×2 (10:00→21:35)
[2021-01-21] MEDS: FUROSEMIDE 40 MG/4 ML VIAL IV SCH (10:27)
[2021-01-21] MEDS: ASPirin 81 mg TAB PO SCH (10:27)
[2021-01-21] MEDS: POTASSIUM CHL 20 Meq TABLET PO SCH (10:27)
[2021-01-21] MEDS: FAMOTIDINE 20 MG TAB PO SCH ×2 (10:28→21:35)
[2021-01-21] MEDS: SPIRONOLACTONE 25 MG TAB PO SCH (10:33)
[2021-01-21] MEDS: CARVEDILOL 12.5 MG TAB PO SCH ×2 (10:34→21:35)
[2021-01-21] MEDS: ENALAPRIL MALEATE 10 MG TAB PO SCH (10:34)
[2021-01-21] MEDS: NIFEdipine ER 30 MG TAB PO SCH (10:35)
[2021-01-21] MEDS ORDERED: IODIXANOL 320MG/ML 100ML BTL IV ONE (13:27)
[2021-01-21] MEDS ORDERED: LIDOCAINE 2%HCL (LOCAL ANESTH.) INJ 20ML MDV ONE (13:27)
[2021-01-21] MEDS ORDERED: ANGIOMAX 250 MG VIAL IV ONE (14:14)
[2021-01-21] MEDS ORDERED: SODIUM CHL 0.9% 0 ML ONE (14:15)
[2021-01-21] MEDS ORDERED: fentaNYL CITRATE 100 MCG/2 ML VL ONE (14:15)
[2021-01-21] MEDS ORDERED: MIDAZOLAM HCL 1MG/1ML-2 ML VIAL ONE (14:15)
[2021-01-21] MEDS ORDERED: VERAPAMIL 2.5MG/ML INJ 2ML VIAL IV ONE (14:18)
[2021-01-21] MEDS: cloNIDine HCL 0.1 MG TAB PO SCH (21:35)
[2021-01-21] MEDS: ATORVASTATIN 20 MG TAB PO SCH (21:35)
[2021-01-22] VITALS (21 sets, daily range): BP systolic 118–171; BP diastolic 70–99
[2021-01-22] MEDS: traMADol HCL 50 MG TAB PO PRN ×2 (02:10→09:49)
[2021-01-22] MEDS: LABETALOL HCL 5 MG/ML ML 20ML VIAL IV PRN (02:16)
[2021-01-22 05:33] LABS: Basophils # (auto) 0 10 ^3/uL (0-0.2); Basophils % (auto) 0.5 % (0.0-2.0); Eosinophils # (auto) 0.4 10 ^3/uL (0-0.8); Eosinophils % (auto) 4.2 % (0.0-7.0); Hematocrit 30.4 % (36.0-46.0); Hemoglobin 10.3 g/dL (12.2-16.2); Lymphocytes # (auto) 1.8 10 ^3/uL (0.4-5.4); Lymphocytes % (auto) 20.4 % (10.0-50.0); Mean Corpuscular Hemoglobin 28.9 pg (28.0-32.0); Mean Corpuscular Hgb Conc. 33.9 g/dL (32.0-36.0); Mean Corpuscular Volume 85.3 fL (80.0-100.0); Monocytes # (auto) 0.6 10 ^3/uL (0-1.3); Monocytes % (auto) 6.7 % (0.0-12.0); Neutrophils # (auto) 6.1 10 ^3/uL (1.6-8.6); Neutrophils % (auto) 68.2 % (37.0-80.0); Nucleated Red Blood Cells % 0.1 %; Platelet Count (auto) 252 10^3/uL (140-450); Red Blood Cells 3.57 10^6/uL (4.0-5.20); Red Cell Distribution Width 17.4 % (11.8-14.3); White Blood Cell 8.9 10^3/uL (4.4-10.8)
[2021-01-22 05:44] LABS: BUN/Creatinine Ratio 21.4; Calcium 8.4 mg/dL (8.5-10.1); Potassium 3.6 mmol/L (3.5-5.1)
[2021-01-22] MEDS: SODIUM CHLOR 0.9% PF (SALINE LOCK) 10ML VIAL/SYR IV SCH ×3 (06:16→21:42)
[2021-01-22] MEDS: ISOSORBIDE DINITRATE 10 MG TAB PO SCH (06:17)
[2021-01-22] MEDS: SPIRONOLACTONE 25 MG TAB PO SCH (09:03)
[2021-01-22] MEDS: ENOXAPARIN SOD 100 MG/1 ML SYRINGE SC SCH (09:03)
[2021-01-22] MEDS: ASPirin 81 mg TAB PO SCH (09:03)
[2021-01-22] MEDS: POTASSIUM CHL 20 Meq TABLET PO SCH (09:03)
[2021-01-22] MEDS: CARVEDILOL 12.5 MG TAB PO SCH ×2 (09:04→21:42)
[2021-01-22] MEDS: FAMOTIDINE 20 MG TAB PO SCH ×2 (09:04→21:42)
[2021-01-22] MEDS: NIFEdipine ER 30 MG TAB PO SCH (09:05)
[2021-01-22] MEDS: ENALAPRIL MALEATE 10 MG TAB PO SCH (09:05)
[2021-01-22] MEDS: FUROSEMIDE 40 MG TAB PO SCH (09:05)
[2021-01-22] MEDS: cloNIDine HCL 0.1 MG TAB PO SCH ×2 (09:05→21:42)
[2021-01-22] MEDS ORDERED: NIFEdipine ER 30 MG TAB PO ONE (10:15)
[2021-01-22] MEDS: HYDROcodone-ACET 5/325MG TAB PO PRN (19:00)
[2021-01-22] MEDS: ATORVASTATIN 20 MG TAB PO SCH (21:41)
[2021-01-23] MEDS: HYDROcodone-ACET 5/325MG TAB PO PRN (03:58)
[2021-01-23 05:14] VITALS: BP 152/97
[2021-01-23] MEDS: SODIUM CHLOR 0.9% PF (SALINE LOCK) 10ML VIAL/SYR IV SCH ×2 (06:12→14:08)
[2021-01-23 06:37] LABS: BUN/Creatinine Ratio 22.4; Calcium 8.4 mg/dL (8.5-10.1); Potassium 3.8 mmol/L (3.5-5.1)
[2021-01-23 09:00] VITALS: BP 139/90
[2021-01-23] MEDS ORDERED: NIFEdipine ER 30 MG TAB PO SCH (10:00)
[2021-01-23] MEDS: ASPirin 81 mg TAB PO SCH (11:00)
[2021-01-23] MEDS: SPIRONOLACTONE 25 MG TAB PO SCH (11:02)
[2021-01-23] MEDS: cloNIDine HCL 0.1 MG TAB PO SCH (11:04)
[2021-01-23] MEDS: FUROSEMIDE 40 MG TAB PO SCH (11:05)
[2021-01-23] MEDS: CARVEDILOL 12.5 MG TAB PO SCH (11:05)
[2021-01-23] MEDS: FAMOTIDINE 20 MG TAB PO SCH (11:06)
[2021-01-23] MEDS: ENALAPRIL MALEATE 10 MG TAB PO SCH (11:08)
[2021-01-23] MEDS: POTASSIUM CHL 20 Meq TABLET PO SCH (11:09)
[2021-01-23 13:00] VITALS: BP 155/90
[2021-01-23 15:02] VITALS: BP 119/69
== END 2021-01-23 17:00 | disposition home or self-care (01) | DRG 190 ==
LOC: ER 04:59 → OVERFLOW 15:26 → DOU IN ICU 01-20 15:39 → TELE-EAST 01-22 22:00
PROVIDERS: ADMIT Internal Medicine; ATTEND Internal Medicine
PROC: 4A023N7 Measurement of Cardiac Sampling and Pressure, Left Heart, Percutaneous Approach (ICD-10-PCS; principal; 2021-01-21)
PROC: B2111ZZ Fluoroscopy of Multiple Coronary Arteries using Low Osmolar Contrast (ICD-10-PCS; 2021-01-21)
PROC: B2151ZZ Fluoroscopy of Left Heart using Low Osmolar Contrast (ICD-10-PCS; 2021-01-21)
DX: I21.4 Non-ST elevation (NSTEMI) myocardial infarction (principal); N17.0 Acute kidney failure with tubular necrosis; I50.43 Acute on chronic combined systolic (congestive) and diastolic (congestive) heart failure; E44.0 Moderate protein-calorie malnutrition; E66.01 Morbid (severe) obesity due to excess calories; I27.20 Pulmonary hypertension, unspecified; Z68.43 Body mass index [BMI] 50.0-59.9, adult; I11.0 Hypertensive heart disease with heart failure; E87.6 Hypokalemia; K80.20 Calculus of gallbladder without cholecystitis without obstruction; D64.9 Anemia, unspecified; G47.30 Sleep apnea, unspecified; R31.29 Other microscopic hematuria; Z20.822 Contact with and (suspected) exposure to COVID-19; Z83.3 Family history of diabetes mellitus; Z82.49 Family history of ischemic heart disease and other diseases of the circulatory system; Z82.61 Family history of arthritis
CPT/HCPCS: 36415; 70450; 71045; 80048; 80053; 80061; 80307; 81001; 82550; 83880; 84443; 84484; 85025; 85610; 85730; 86141; 86850; 86900; 86901; 87081; 87426; 93005; 93306; 93458; 96365; 96366; 96372; 96375; 96376; 99152; 99153; 99291; G0378; J2250; J2405; J3480; Q9967

== ENCOUNTER 2021-03-10 03:33 | Emergency (ER) | payer MEDICAID ==
[~2021-03-10] VITALS: Ht 180.3 cm; Wt 124.7 kg
[~2021-03-10 03:33] MED LIST changes: +LOSA25TA38 PO
[2021-03-10] MEDS ORDERED: cloNIDine HCL 0.1 MG TAB ONE (05:51)
[2021-03-10] MEDS ORDERED: cloNIDine HCL 0.1 MG TAB PO ONE (06:00)
[2021-03-10 08:03] LABS: Basophils # (auto) 0 10 ^3/uL (0-0.2); Basophils % (auto) 0.6 % (0.0-2.0); Eosinophils # (auto) 0.4 10 ^3/uL (0-0.8); Eosinophils % (auto) 5.4 % (0.0-7.0); Hematocrit 40.8 % (36.0-46.0); Hemoglobin 13.7 g/dL (12.2-16.2); Lymphocytes # (auto) 1.6 10 ^3/uL (0.4-5.4); Lymphocytes % (auto) 22.6 % (10.0-50.0); Mean Corpuscular Hemoglobin 28.5 pg (28.0-32.0); Mean Corpuscular Hgb Conc. 33.5 g/dL (32.0-36.0); Mean Corpuscular Volume 84.9 fL (80.0-100.0); Monocytes # (auto) 0.6 10 ^3/uL (0-1.3); Monocytes % (auto) 8.1 % (0.0-12.0); Neutrophils # (auto) 4.5 10 ^3/uL (1.6-8.6); Neutrophils % (auto) 63.3 % (37.0-80.0); Red Blood Cells 4.81 10^6/uL (4.0-5.20); Red Cell Distribution Width 17.4 % (11.8-14.3); White Blood Cell 7.1 10^3/uL (4.4-10.8)
[2021-03-10 08:24] LABS: Alanine Aminotransferase 33 U/L (13-56); Albumin 3.4 g/dL (3.4-5.0); Anion Gap 7 (5-15); Aspartate Aminotransferase 20 U/L (15-37); BUN/Creatinine Ratio 19.6; Blood Urea Nitrogen 22 mg/dL (7-18); Calcium 8.8 mg/dL (8.5-10.1); Carbon Dioxide 25 mmol/L (21-32); Chloride 107 mmol/L (98-107); GFR African American 73 mL/min; GFR Non-African American 60 mL/min; Glucose 100 mg/dL (74-106); Sodium 139 mmol/L (136-145)
[2021-03-10 08:29] LABS: Alkaline Phosphatase 51 U/L (45-117); Bilirubin, Total 0.3 mg/dL (0.2-1.0); Total Protein 7.2 g/dL (6.4-8.2)
[2021-03-10 10:46] VITALS: BP 147/98
== END 2021-03-10 10:48 | disposition home or self-care (01) ==
LOC: ER 03:33
DX: I16.0 Hypertensive urgency (principal); E78.5 Hyperlipidemia, unspecified; Z79.82 Long term (current) use of aspirin; Z79.899 Other long term (current) drug therapy; Z98.890 Other specified postprocedural states
CPT/HCPCS: 36415; 71045; 80053; 84484; 85025; 93005

== ENCOUNTER 2021-04-09 03:06 | Inpatient (IN) | payer MEDICAID ==
[~2021-04-09] VITALS: Ht 154.9 cm; Wt 135.8 kg
[2021-04-09] MEDS ORDERED: LABETALOL HCL 5 MG/ML 4ML SYRINGE IV ONE (03:30)
[2021-04-09 04:11] LABS: Basophils # (auto) 0 10 ^3/uL (0-0.2); Basophils % (auto) 0.7 % (0.0-2.0); Eosinophils # (auto) 0.3 10 ^3/uL (0-0.8); Hematocrit 40.8 % (36.0-46.0); Hemoglobin 13.6 g/dL (12.2-16.2); Lymphocytes # (auto) 1.7 10 ^3/uL (0.4-5.4); Lymphocytes % (auto) 24.2 % (10.0-50.0); Mean Corpuscular Hemoglobin 28.8 pg (28.0-32.0); Mean Corpuscular Hgb Conc. 33.4 g/dL (32.0-36.0); Mean Corpuscular Volume 86.4 fL (80.0-100.0); Monocytes # (auto) 0.5 10 ^3/uL (0-1.3); Monocytes % (auto) 6.5 % (0.0-12.0); Neutrophils # (auto) 4.6 10 ^3/uL (1.6-8.6); Neutrophils % (auto) 64.6 % (37.0-80.0); Nucleated Red Blood Cells % 0.1 %; Red Blood Cells 4.72 10^6/uL (4.0-5.20); Red Cell Distribution Width 15.9 % (11.8-14.3); White Blood Cell 7.1 10^3/uL (4.4-10.8)
[2021-04-09 04:26] LABS: INR 0.92 (0.9-1.15); Partial Thromboplastin Time 22.3 sec (23.6-33.0)
[2021-04-09 04:29] LABS: Alanine Aminotransferase 36 U/L (13-56); Albumin 3.2 g/dL (3.4-5.0); Anion Gap 5 (5-15); Aspartate Aminotransferase 22 U/L (15-37); Blood Urea Nitrogen 29 mg/dL (7-18); Calcium 8.8 mg/dL (8.5-10.1); Carbon Dioxide 27 mmol/L (21-32); Chloride 107 mmol/L (98-107); GFR African American 54 mL/min; GFR Non-African American 44 mL/min; Glucose 94 mg/dL (74-106); Magnesium 2.3 mg/dL (1.6-2.6); Potassium 4.3 mmol/L (3.5-5.1); Sodium 139 mmol/L (136-145)
[2021-04-09 04:33] LABS: Alkaline Phosphatase 57 U/L (45-117); Bilirubin, Total 0.2 mg/dL (0.2-1.0); Total Protein 7.4 g/dL (6.4-8.2)
[2021-04-09] MEDS ORDERED: MORPHINE SULFATE 4 MG/ML SYR/VIAL IV ONE (04:45)
[2021-04-09] MEDS ORDERED: ONDANSETRON HCL 4 MG/2 ML VIAL IV ONE (04:45)
[2021-04-09] MEDS ORDERED: ASPirin 325 MG TAB PO ONE (05:00)
[2021-04-09] MEDS ORDERED: IOHEXOL 350 MG/ML 100ML IJ ONE (05:07)
[2021-04-09] MEDS ORDERED: NITROGLYCERIN 0.4 MG SL TAB SL PRN ×2 (09:15→10:00)
[2021-04-09] MEDS ORDERED: MORPHINE SULFATE INJECTION 2 MG/2 ML SYRG IV PRN ×3 (09:15→10:00)
[2021-04-09] MEDS ORDERED: FUROSEMIDE 100 MG/10ML VIAL IV ONE (09:15)
[2021-04-09] MEDS: LABETALOL HCL 5 MG/ML 4ML SYRINGE IV PRN (09:44)
[2021-04-09] MEDS ORDERED: DOCUSATE SOD 100 MG CAP PO PRN (10:00)
[2021-04-09] MEDS ORDERED: METOPROLOL SUCCINATE XL 50 MG TAB PO ONE (10:00)
[2021-04-09] MEDS ORDERED: ATORVASTATIN 20 MG TAB PO ONE (10:00)
[2021-04-09] MEDS ORDERED: HYDROcodone-ACET 5/325MG TAB PO PRN (10:00)
[2021-04-09] MEDS ORDERED: ALUM & MAG HYDROX-SIMETH LIQ(MAALOX) 30 ML PO PRN (10:00)
[2021-04-09] MEDS ORDERED: ENOXAPARIN SOD 60 MG/0.6 ML SYRINGE SC SCH (10:00)
[2021-04-09] MEDS ORDERED: ONDANSETRON HCL 4 MG/2 ML VIAL IV PRN (10:00)
[2021-04-09] MEDS ORDERED: ASPirin 81 mg TAB PO SCH (10:00)
[2021-04-09] MEDS ORDERED: LORazepam 0.5 MG TAB PO PRN (10:00)
[2021-04-09] MEDS ORDERED: FAMO20TA10 PO (10:15)
[2021-04-09] MEDS ORDERED: SPIR50TA5 PO (10:15)
[2021-04-09] MEDS ORDERED: CAR125T PO (10:15)
[2021-04-09] MEDS ORDERED: FURO40TA4 PO (10:15)
[2021-04-09] MEDS ORDERED: NIFE1TAB30 PO (10:15)
[2021-04-09] MEDS ORDERED: ATOR40TA52 PO (10:15)
[2021-04-09] MEDS ORDERED: ASPI-498 PO ×2 (10:15→10:16)
[2021-04-09] MEDS ORDERED: FAMOTIDINE (10MG/ML) 2ML VL IV ONE (10:15)
[2021-04-09] MEDS: SOD CHL 0.45% 1,000 ML IV SCH ×2 (10:36→23:57)
[2021-04-09] MEDS: NIFEdipine 10 MG CAP PO SCH ×2 (15:34→23:20)
[2021-04-09] MEDS: FUROSEMIDE 20 MG/2 ML VIAL IV SCH (18:36)
[2021-04-09 20:45] LABS: Urine Bacteria NONE SEEN /hpf (None Seen); Urine Blood Negative /uL (Negative); Urine Specific Gravity 1.013 (1.001-1.035); Urine WBC <1 /hpf (0 - 5)
[2021-04-09 21:00] LABS: Amphetamine Screen, Urine NEGATIVE (NEGATIVE); Barbiturate Scree,Urine NEGATIVE (NEGATIVE); Benzodiazephine Screen, Urine NEGATIVE (NEGATIVE); Cannabinoid Screen, Urine NEGATIVE (NEGATIVE); Cocaine Screen, Urine NEGATIVE (NEGATIVE); Opiate Scree,Urine NEGATIVE (NEGATIVE); Phencyclidine Screen, Urine NEGATIVE (NEGATIVE)
[2021-04-09] MEDS: FAMOTIDINE (10MG/ML) 2ML VL IV SCH (23:19)
[2021-04-09] MEDS: ATORVASTATIN 20 MG TAB PO SCH (23:20)
[2021-04-09 23:25] VITALS: BP 152/79
[2021-04-10] VITALS (8 sets, daily range): BP systolic 116–164; BP diastolic 61–98
[2021-04-10] MEDS: LABETALOL HCL 5 MG/ML 4ML SYRINGE IV PRN ×2 (00:42→05:53)
[2021-04-10] MEDS: NIFEdipine 10 MG CAP PO SCH (05:47)
[2021-04-10] MEDS: FUROSEMIDE 20 MG/2 ML VIAL IV SCH (05:47)
[2021-04-10] MEDS: ACETAMINOPHEN 325 MG TAB PO PRN (05:53)
[2021-04-10] MEDS: ENOXAPARIN SOD 40 MG/0.4 ML SYRINGE SC SCH (09:13)
[2021-04-10] MEDS: FAMOTIDINE (10MG/ML) 2ML VL IV SCH (09:14)
[2021-04-10] MEDS: ASPirin 81 mg TAB PO SCH (09:15)
[2021-04-10] MEDS: METOPROLOL SUCCINATE XL 50 MG TAB PO SCH (09:15)
[2021-04-10] MEDS: LISINOPRIL 20 MG TAB PO SCH (09:15)
[2021-04-10] MEDS ORDERED: LABETALOL HCL 5 MG/ML 4ML SYRINGE IV PRN (10:15)
[2021-04-10] MEDS ORDERED: LORazepam 2MG/ML-1ML VIAL IV ONE (10:15)
[2021-04-10] MEDS ORDERED: NIFEdipine ER 30 MG TAB PO ONE (10:15)
[2021-04-10] MEDS: ATORVASTATIN 20 MG TAB PO SCH (21:44)
[2021-04-10] MEDS ORDERED: PRAMIPEXOLE DIHYDROCHLORIDE MO 0.25 MG TAB PO SCH (22:00)
[2021-04-10 22:57] LABS: % Iron Saturation 24.1 % (15-50)
[2021-04-11 05:00] VITALS: BP 156/73
[2021-04-11 05:43] LABS: Potassium 3.8 mmol/L (3.5-5.1)
[2021-04-11 05:50] LABS: BUN/Creatinine Ratio 17.4
[2021-04-11] MEDS: ASPirin 81 mg TAB PO SCH (09:14)
[2021-04-11] MEDS: LISINOPRIL 20 MG TAB PO SCH (09:14)
[2021-04-11] MEDS: ENOXAPARIN SOD 40 MG/0.4 ML SYRINGE SC SCH (09:14)
[2021-04-11] MEDS: METOPROLOL SUCCINATE XL 50 MG TAB PO SCH (09:15)
[2021-04-11] MEDS: ACETAMINOPHEN 325 MG TAB PO PRN (09:26)
[2021-04-11] MEDS ORDERED: NIFEdipine ER 30 MG TAB PO SCH (10:00)
[2021-04-11 10:44] VITALS: BP 164/82
== END 2021-04-11 15:11 | disposition home or self-care (01) | DRG 47 ==
LOC: ER 03:06 → TELE 09:04 → OVERFLOW 09:16 → WEST WING 23:17 → CENTRAL 04-10 06:35
PROVIDERS: ADMIT Hospitalist; ATTEND Internal Medicine
DX: G45.9 Transient cerebral ischemic attack, unspecified (principal); N17.0 Acute kidney failure with tubular necrosis; I50.31 Acute diastolic (congestive) heart failure; I16.1 Hypertensive emergency; I13.0 Hypertensive heart and chronic kidney disease with heart failure and stage 1 through stage 4 chronic kidney disease, or unspecified chronic kidney disease; E88.09 Other disorders of plasma-protein metabolism, not elsewhere classified; N18.32 Chronic kidney disease, stage 3b; E66.01 Morbid (severe) obesity due to excess calories; E78.5 Hyperlipidemia, unspecified; E88.81 Metabolic syndrome and other insulin resistance; G25.81 Restless legs syndrome; G47.00 Insomnia, unspecified; G47.30 Sleep apnea, unspecified; Z20.822 Contact with and (suspected) exposure to COVID-19; K80.20 Calculus of gallbladder without cholecystitis without obstruction; Z68.23 Body mass index [BMI] 23.0-23.9, adult; Z82.61 Family history of arthritis; Z79.82 Long term (current) use of aspirin; Z79.899 Other long term (current) drug therapy; Z81.8 Family history of other mental and behavioral disorders; Z82.3 Family history of stroke; Z82.49 Family history of ischemic heart disease and other diseases of the circulatory system; Z82.5 Family history of asthma and other chronic lower respiratory diseases; Z83.3 Family history of diabetes mellitus; Z91.19 Patient's noncompliance with other medical treatment and regimen
CPT/HCPCS: 36415; 70450; 70460; 70498; 70551; 71045; 73110; 80048; 80053; 80307; 81001; 82728; 83036; 83540; 83550; 83735; 84484; 84702; 85025; 85610; 85730; 87040; 87086; 87426; 93005; 96374; 96375; G0378; J3490

== ENCOUNTER 2021-08-11 20:45 | Inpatient (IN) | payer MEDICAID ==
[~2021-08-11] VITALS: Ht 152.4 cm; Wt 141.0 kg
[~2021-08-11 20:45] MED LIST changes: +ASPI-498 PO; -ASPI81CH43 PO; -ATOR20TA50 PO; +ATOR40TA52 PO; +CAR125T PO; -CARV6.2551 PO; -DOX100T PO
[2021-08-11 21:35] LABS: Basophils # (auto) 0.1 10 ^3/uL (0-0.2); Basophils % (auto) 0.8 % (0.0-2.0); Eosinophils # (auto) 0.3 10 ^3/uL (0-0.8); Eosinophils % (auto) 3.8 % (0.0-7.0); Hematocrit 42.7 % (36.0-46.0); Hemoglobin 14.3 g/dL (12.2-16.2); Lymphocytes # (auto) 1.3 10 ^3/uL (0.4-5.4); Lymphocytes % (auto) 16.8 % (10.0-50.0); Mean Corpuscular Hemoglobin 29.4 pg (28.0-32.0); Mean Corpuscular Hgb Conc. 33.6 g/dL (32.0-36.0); Mean Corpuscular Volume 87.4 fL (80.0-100.0); Monocytes # (auto) 0.5 10 ^3/uL (0-1.3); Neutrophils # (auto) 5.8 10 ^3/uL (1.6-8.6); Neutrophils % (auto) 72.6 % (37.0-80.0); Nucleated Red Blood Cells % 0.1 %; Red Blood Cells 4.88 10^6/uL (4.0-5.20); Red Cell Distribution Width 14.1 % (11.8-14.3)
[2021-08-11 21:55] LABS: Albumin 3.4 g/dL (3.4-5.0); Calcium 9.1 mg/dL (8.5-10.1); Potassium 3.3 mmol/L (3.5-5.1)
[2021-08-11 22:00] LABS: BUN/Creatinine Ratio 14.2; Bilirubin, Total 0.3 mg/dL (0.2-1.0); Total Protein 7.6 g/dL (6.4-8.2)
[2021-08-12] MEDS ORDERED: hydrALAZINE HCL 20 MG/ML VL IV PRN (02:00)
[2021-08-12] MEDS ORDERED: MORPHINE SULFATE 4 MG/ML SYR/VIAL IV PRN (02:00)
[2021-08-12] MEDS ORDERED: ACETAMINOPHEN 325 MG TAB PO PRN (02:00)
[2021-08-12] MEDS ORDERED: DOCUSATE SOD 100 MG CAP PO PRN (02:00)
[2021-08-12] MEDS ORDERED: HYDROcodone-ACET 5/325MG TAB PO PRN (02:00)
[2021-08-12] MEDS: POTASSIUM CHL 20MEQ/50ML 50 ML IV SCH ×2 (03:21→04:26)
[2021-08-12] MEDS: ONDANSETRON HCL 4 MG/2 ML VIAL IV PRN ×2 (03:38→08:12)
[2021-08-12 04:16] LABS: Basophils # (auto) 0.1 10 ^3/uL (0-0.2); Basophils % (auto) 0.7 % (0.0-2.0); Eosinophils # (auto) 0.4 10 ^3/uL (0-0.8); Eosinophils % (auto) 4.2 % (0.0-7.0); Hematocrit 44.2 % (36.0-46.0); Hemoglobin 14.8 g/dL (12.2-16.2); Lymphocytes # (auto) 1.3 10 ^3/uL (0.4-5.4); Lymphocytes % (auto) 15.6 % (10.0-50.0); Mean Corpuscular Hemoglobin 29.5 pg (28.0-32.0); Mean Corpuscular Hgb Conc. 33.6 g/dL (32.0-36.0); Mean Corpuscular Volume 87.9 fL (80.0-100.0); Monocytes # (auto) 0.4 10 ^3/uL (0-1.3); Monocytes % (auto) 5.2 % (0.0-12.0); Neutrophils # (auto) 6.3 10 ^3/uL (1.6-8.6); Neutrophils % (auto) 74.3 % (37.0-80.0); Nucleated Red Blood Cells % 0.1 %; Red Blood Cells 5.03 10^6/uL (4.0-5.20); White Blood Cell 8.5 10^3/uL (4.4-10.8)
[2021-08-12 04:41] LABS: Albumin 3.5 g/dL (3.4-5.0); Potassium 3.8 mmol/L (3.5-5.1)
[2021-08-12 04:48] LABS: Bilirubin, Total 0.4 mg/dL (0.2-1.0); Calcium 9.3 mg/dL (8.5-10.1); Total Protein 7.4 g/dL (6.4-8.2)
[2021-08-12] MEDS: SODIUM CHLOR 0.9% PF (SALINE LOCK) 10ML VIAL/SYR IV SCH ×3 (06:33→21:11)
[2021-08-12] MEDS ORDERED: MORPHINE SULFATE INJECTION 2 MG/ML SYRG IV PRN (07:00)
[2021-08-12] MEDS ORDERED: NITROGLYCERIN 0.4 MG SL TAB SL PRN (07:00)
[2021-08-12] MEDS: CARVEDILOL 12.5 MG TAB PO SCH ×2 (09:08→21:14)
[2021-08-12] MEDS: ASPirin 81 mg TAB PO SCH (09:09)
[2021-08-12] MEDS: FAMOTIDINE (10MG/ML) 2ML VL IV SCH (09:09)
[2021-08-12 11:52] LABS: Urine Bacteria FEW /hpf (None Seen); Urine Blood Negative /uL (Negative); Urine Hyaline Cast MANY /lpf (0 - 2); Urine Mucus FEW (None Seen); Urine Specific Gravity 1.026 (1.001-1.035); Urine WBC 10 /hpf (0 - 5)
[2021-08-12 20:00] VITALS: BP 132/65
[2021-08-12] MEDS ORDERED: ATORVASTATIN 20 MG TAB PO SCH (22:00)
[2021-08-13 05:00] VITALS: BP 135/73
[2021-08-13] MEDS: SODIUM CHLOR 0.9% PF (SALINE LOCK) 10ML VIAL/SYR IV SCH (05:16)
[2021-08-13 05:43] LABS: Basophils # (auto) 0 10 ^3/uL (0-0.2); Basophils % (auto) 0.3 % (0.0-2.0); Eosinophils # (auto) 0.5 10 ^3/uL (0-0.8); Eosinophils % (auto) 5.6 % (0.0-7.0); Hematocrit 38.6 % (36.0-46.0); Hemoglobin 13.2 g/dL (12.2-16.2); Lymphocytes # (auto) 1.8 10 ^3/uL (0.4-5.4); Lymphocytes % (auto) 22.1 % (10.0-50.0); Mean Corpuscular Hemoglobin 30.2 pg (28.0-32.0); Mean Corpuscular Hgb Conc. 34.1 g/dL (32.0-36.0); Mean Corpuscular Volume 88.6 fL (80.0-100.0); Monocytes # (auto) 0.7 10 ^3/uL (0-1.3); Monocytes % (auto) 8.4 % (0.0-12.0); Neutrophils # (auto) 5.3 10 ^3/uL (1.6-8.6); Neutrophils % (auto) 63.6 % (37.0-80.0); Red Blood Cells 4.36 10^6/uL (4.0-5.20); Red Cell Distribution Width 14.1 % (11.8-14.3); White Blood Cell 8.3 10^3/uL (4.4-10.8)
[2021-08-13 06:06] LABS: Calcium 8.8 mg/dL (8.5-10.1)
[2021-08-13 06:12] LABS: Albumin 3.4 g/dL (3.4-5.0); BUN/Creatinine Ratio 20.5; Bilirubin, Total 0.5 mg/dL (0.2-1.0); Total Protein 7.1 g/dL (6.4-8.2)
[2021-08-13 09:00] VITALS: BP_SYST 163; BP_SYST 92; BP_DIAS 92
[2021-08-13] MEDS: FAMOTIDINE (10MG/ML) 2ML VL IV SCH (09:04)
[2021-08-13] MEDS: ASPirin 81 mg TAB PO SCH (09:05)
[2021-08-13] MEDS: CARVEDILOL 12.5 MG TAB PO SCH (09:06)
[2021-08-13] MEDS ORDERED: LISINOPRIL 20 MG TAB PO SCH (10:00)
[2021-08-13 11:22] VITALS: BP 163/92
[2021-08-13 13:00] VITALS: BP 127/71
== END 2021-08-13 14:00 | disposition home or self-care (01) | DRG 198 ==
LOC: ER 20:46 → TELE 08-12 06:56 → TELE-CENTR 08-12 13:37
PROVIDERS: ADMIT Nurse Practitioner Family; ATTEND Family Medicine
DX: I24.9 Acute ischemic heart disease, unspecified (principal); I42.8 Other cardiomyopathies; I50.9 Heart failure, unspecified; I11.0 Hypertensive heart disease with heart failure; E66.01 Morbid (severe) obesity due to excess calories; E78.5 Hyperlipidemia, unspecified; E87.6 Hypokalemia; Z20.822 Contact with and (suspected) exposure to COVID-19; E78.00 Pure hypercholesterolemia, unspecified; Z68.43 Body mass index [BMI] 50.0-59.9, adult; Z91.14 Patient's other noncompliance with medication regimen; Z81.8 Family history of other mental and behavioral disorders; Z82.3 Family history of stroke; Z82.49 Family history of ischemic heart disease and other diseases of the circulatory system; Z82.5 Family history of asthma and other chronic lower respiratory diseases; Z83.3 Family history of diabetes mellitus
CPT/HCPCS: 36415; 80053; 80061; 81001; 81025; 83036; 83880; 84484; 85025; 87426; 93005; 93306; 96361; 96374; 96375; G0378; J2405; J3490

== ENCOUNTER 2021-11-19 11:38 | Inpatient (IN) | payer MEDICAID ==
[~2021-11-19] VITALS: Ht 154.9 cm; Wt 148.8 kg
[2021-11-19] MEDS ORDERED: cloNIDine HCL 0.1 MG TAB PO ONE (12:00)
[2021-11-19 13:29] LABS: Basophils # (auto) 0 10 ^3/uL (0-0.2); Basophils % (auto) 0.5 % (0.0-2.0); Eosinophils # (auto) 0.3 10 ^3/uL (0-0.8); Eosinophils % (auto) 4.4 % (0.0-7.0); Hematocrit 43.1 % (36.0-46.0); Hemoglobin 14.6 g/dL (12.2-16.2); Lymphocytes # (auto) 1.6 10 ^3/uL (0.4-5.4); Lymphocytes % (auto) 20.8 % (10.0-50.0); Mean Corpuscular Hemoglobin 29.2 pg (28.0-32.0); Mean Corpuscular Volume 86.1 fL (80.0-100.0); Monocytes # (auto) 0.6 10 ^3/uL (0-1.3); Monocytes % (auto) 7.6 % (0.0-12.0); Neutrophils % (auto) 66.7 % (37.0-80.0); Nucleated Red Blood Cells % 0.2 %; White Blood Cell 7.5 10^3/uL (4.4-10.8)
[2021-11-19] MEDS ORDERED: hydrALAZINE HCL 20 MG/ML VL IV ONE (13:45)
[2021-11-19 13:49] LABS: Albumin 3.4 g/dL (3.4-5.0); Calcium 8.7 mg/dL (8.5-10.1); Potassium 3.5 mmol/L (3.5-5.1)
[2021-11-19 13:55] LABS: Bilirubin, Total 0.5 mg/dL (0.2-1.0); Total Protein 7.1 g/dL (6.4-8.2)
[2021-11-19] MEDS ORDERED: HYDROcodone-ACET 5/325MG TAB PO ONE (14:30)
[2021-11-19] MEDS ORDERED: MORPHINE SULFATE INJECTION 2 MG/ML SYRG IV PRN (16:00)
[2021-11-19] MEDS ORDERED: NITROGLYCERIN 0.4 MG SL TAB SL PRN (16:00)
[2021-11-19] MEDS: LABETALOL HCL 5 MG/ML 4ML SYRINGE IV PRN (17:22)
[2021-11-19] MEDS: hydrALAZINE HCL 20 MG/ML VL IV PRN (18:34)
[2021-11-19 20:50] VITALS: BP 150/85
[2021-11-19 23:20] LABS: Magnesium 2.2 mg/dL (1.6-2.6)
[2021-11-19 23:23] LABS: Phosphorus 3.1 mg/dL (2.5-4.90)
[2021-11-20] MEDS: LABETALOL HCL 5 MG/ML 4ML SYRINGE IV PRN (00:32)
[2021-11-20 00:43] LABS: Partial Thromboplastin Time 24.3 sec (23.6-33.0)
[2021-11-20] MEDS: ACETAMINOPHEN 325 MG TAB PO PRN ×2 (00:46→20:10)
[2021-11-20] MEDS: hydrALAZINE HCL 20 MG/ML VL IV PRN (03:46)
[2021-11-20 05:00] VITALS: BP 132/69
[2021-11-20 05:35] LABS: Basophils # (auto) 0 10 ^3/uL (0-0.2); Basophils % (auto) 0.5 % (0.0-2.0); Eosinophils # (auto) 0.3 10 ^3/uL (0-0.8); Eosinophils % (auto) 3.9 % (0.0-7.0); Hematocrit 39.2 % (36.0-46.0); Hemoglobin 13.5 g/dL (12.2-16.2); Lymphocytes # (auto) 1.7 10 ^3/uL (0.4-5.4); Lymphocytes % (auto) 20.2 % (10.0-50.0); Mean Corpuscular Hemoglobin 29.9 pg (28.0-32.0); Mean Corpuscular Hgb Conc. 34.4 g/dL (32.0-36.0); Monocytes # (auto) 0.8 10 ^3/uL (0-1.3); Monocytes % (auto) 9.7 % (0.0-12.0); Neutrophils # (auto) 5.6 10 ^3/uL (1.6-8.6); Neutrophils % (auto) 65.7 % (37.0-80.0); Nucleated Red Blood Cells % 0.1 %; Red Cell Distribution Width 15.2 % (11.8-14.3); White Blood Cell 8.5 10^3/uL (4.4-10.8)
[2021-11-20 06:02] LABS: INR 0.99 (0.9-1.15); Partial Thromboplastin Time 25.5 sec (23.6-33.0)
[2021-11-20] MEDS ORDERED: DOCUSATE SOD 100 MG CAP PO PRN (06:15)
[2021-11-20] MEDS ORDERED: ONDANSETRON HCL 4 MG/2 ML VIAL IV PRN (06:15)
[2021-11-20] MEDS ORDERED: cefTRIAXone 1GM/50ML D5W 50 ML IV ONE (06:15)
[2021-11-20] MEDS ORDERED: HYDROcodone-ACET 5/325MG TAB PO ONE (06:15)
[2021-11-20] MEDS ORDERED: ASPirin 81 mg TAB PO ONE (06:15)
[2021-11-20] MEDS ORDERED: LACTULOSE 20Gm/30ML SOLN PO PRN (06:15)
[2021-11-20] MEDS ORDERED: MORPHINE SULFATE INJECTION 2 MG/ML SYRG IV PRN (06:15)
[2021-11-20] MEDS ORDERED: LORazepam 0.5 MG TAB PO PRN (06:15)
[2021-11-20] MEDS ORDERED: METOPROLOL SUCCINATE XL 50 MG TAB PO ONE (06:15)
[2021-11-20] MEDS ORDERED: HYDROcodone-ACET 5/325MG TAB PO PRN (06:15)
[2021-11-20 06:16] LABS: Bilirubin, Total 0.5 mg/dL (0.2-1.0); CRP High Sensitivity 1.22 mg/dL (< 0.3); Calcium 8.6 mg/dL (8.5-10.1); Magnesium 2.8 mg/dL (1.6-2.6); Phosphorus 3.8 mg/dL (2.5-4.90); Total Protein 6.9 g/dL (6.4-8.2); Uric Acid 6.3 mg/dL (2.6-6.0)
[2021-11-20 09:02] VITALS: BP 209/89
[2021-11-20 09:32] LABS: Potassium 3.1 mmol/L (3.5-5.1)
[2021-11-20] MEDS ORDERED: HCTZ 25 MG TAB PO SCH (10:00)
[2021-11-20] MEDS: ENOXAPARIN SOD 40 MG/0.4 ML SYRINGE SC SCH (10:30)
[2021-11-20] MEDS: NIFEdipine ER 30 MG TAB PO SCH (10:40)
[2021-11-20] MEDS: BENAZEPRIL HCL 10 MG TAB PO SCH (10:40)
[2021-11-20 11:00] VITALS: BP 99/64
[2021-11-20] MEDS ORDERED: POTASSIUM CHL 20MEQ/100ML 100 ML IV ONE (12:15)
[2021-11-20 13:00] VITALS: BP 111/59
[2021-11-20] MEDS ORDERED: PRAM0.373 PO (16:04)
[2021-11-20 17:01] VITALS: BP 126/66
[2021-11-20 20:51] LABS: Urine Bacteria FEW /hpf (None Seen); Urine Blood Negative /uL (Negative); Urine Hyaline Cast FEW /lpf (0 - 2); Urine WBC 2 /hpf (0 - 5)
[2021-11-20 21:14] LABS: Alcohol, Urine < 3.0 mg/dL (0-10); Amphetamine Screen, Urine NEGATIVE (NEGATIVE); Barbiturate Scree,Urine NEGATIVE (NEGATIVE); Benzodiazephine Screen, Urine NEGATIVE (NEGATIVE); Cannabinoid Screen, Urine NEGATIVE (NEGATIVE); Cocaine Screen, Urine NEGATIVE (NEGATIVE); Opiate Scree,Urine NEGATIVE (NEGATIVE); Phencyclidine Screen, Urine NEGATIVE (NEGATIVE)
[2021-11-20 22:00] VITALS: BP 150/76
[2021-11-20] MEDS ORDERED: ATORVASTATIN 20 MG TAB PO SCH (22:00)
[2021-11-20] MEDS: CARVEDILOL 12.5 MG TAB PO SCH (22:26)
[2021-11-21 05:00] VITALS: BP 155/84
[2021-11-21 05:33] LABS: Potassium 3.2 mmol/L (3.5-5.1)
[2021-11-21 05:40] LABS: BUN/Creatinine Ratio 20.4; Calcium 8.9 mg/dL (8.5-10.1)
[2021-11-21] MEDS: hydrALAZINE HCL 20 MG/ML VL IV PRN (06:07)
[2021-11-21] MEDS ORDERED: cefTRIAXone 1GM/50ML D5W 50 ML IV SCH (09:00)
[2021-11-21] MEDS: ENOXAPARIN SOD 40 MG/0.4 ML SYRINGE SC SCH (09:30)
[2021-11-21] MEDS: CARVEDILOL 12.5 MG TAB PO SCH (09:30)
[2021-11-21] MEDS: NIFEdipine ER 30 MG TAB PO SCH (09:30)
[2021-11-21] MEDS: BENAZEPRIL HCL 10 MG TAB PO SCH (09:30)
[2021-11-21] MEDS ORDERED: SPIRONOLACTONE 25 MG TAB PO SCH (10:00)
[2021-11-21] MEDS ORDERED: METOPROLOL SUCCINATE XL 50 MG TAB PO SCH (10:00)
[2021-11-21] MEDS ORDERED: ASPirin 81 mg TAB PO SCH (10:00)
[2021-11-21] MEDS ORDERED: ASPI-498 PO (12:09)
[2021-11-21] MEDS ORDERED: NIFE1TAB30 PO (12:09)
[2021-11-21] MEDS ORDERED: ATOR40TA52 PO (12:09)
[2021-11-21] MEDS ORDERED: SPIR50TA5 PO (12:09)
[2021-11-21] MEDS ORDERED: CAR125T PO (12:09)
[2021-11-21] MEDS ORDERED: LOSA-69 PO (12:09)
[2021-11-21] MEDS ORDERED: FAMO20TA10 PO (12:09)
[2021-11-21] MEDS ORDERED: METF-370 PO (12:10)
== END 2021-11-21 15:45 | disposition home or self-care (01) | DRG 190 ==
LOC: ER 11:38 → TELE 15:58 → TELE-EAST 20:41
PROVIDERS: ADMIT Hospitalist; ATTEND Internal Medicine Nephrology
DX: I21.4 Non-ST elevation (NSTEMI) myocardial infarction (principal); N17.9 Acute kidney failure, unspecified; E66.2 Morbid (severe) obesity with alveolar hypoventilation; E88.81 Metabolic syndrome and other insulin resistance; E11.9 Type 2 diabetes mellitus without complications; K76.0 Fatty (change of) liver, not elsewhere classified; I16.1 Hypertensive emergency; I11.0 Hypertensive heart disease with heart failure; Z20.822 Contact with and (suspected) exposure to COVID-19; N39.0 Urinary tract infection, site not specified; E87.6 Hypokalemia; Z81.8 Family history of other mental and behavioral disorders; Z79.899 Other long term (current) drug therapy; Z82.3 Family history of stroke; Z82.49 Family history of ischemic heart disease and other diseases of the circulatory system; Z82.5 Family history of asthma and other chronic lower respiratory diseases; Z83.3 Family history of diabetes mellitus; Z68.44 Body mass index [BMI] 60.0-69.9, adult
CPT/HCPCS: 36415; 70450; 71045; 80048; 80053; 80061; 80307; 81001; 82550; 82728; 83036; 83615; 83690; 83735; 83880; 84100; 84156; 84443; 84484; 84550; 84702; 85025; 85379; 85610; 85652; 85730; 86141; 86850; 86900; 86901; 87040; 87086; 93005; 96365; 96375; 96376; G0378; J0696; J3480; J3490

== ENCOUNTER 2022-08-17 03:31 | Inpatient (IN) | payer MEDICAID ==
[~2022-08-17] VITALS: Ht 154.9 cm; Wt 131.4 kg
[~2022-08-17 03:31] MED LIST changes: -FURO40TA4 PO; +LOSA-69 PO; -LOSA25TA38 PO; +PRAM0.373 PO
[2022-08-17] MEDS ORDERED: cloNIDine HCL 0.1 MG TAB PO ONE (04:30)
[2022-08-17 08:08] LABS: Urine Bacteria NONE SEEN /hpf (None Seen); Urine Blood TRACE /uL (Negative); Urine Hyaline Cast FEW /lpf (0 - 2); Urine Mucus FEW (None Seen); Urine Specific Gravity 1.024 (1.001-1.035); Urine WBC 3 /hpf (0 - 5)
[2022-08-17] MEDS ORDERED: SODIUM CHLORIDE 0.9% 1,000 ML IV ONE (08:15)
[2022-08-17 08:42] LABS: Basophils # (auto) 0.1 10 ^3/uL (0-0.2); Basophils % (auto) 0.8 % (0.0-2.0); Eosinophils # (auto) 0.3 10 ^3/uL (0-0.8); Eosinophils % (auto) 3.4 % (0.0-7.0); Hematocrit 41.1 % (36.0-46.0); Hemoglobin 13.9 g/dL (12.2-16.2); Lymphocytes # (auto) 1.5 10 ^3/uL (0.4-5.4); Mean Corpuscular Hemoglobin 29.3 pg (28.0-32.0); Mean Corpuscular Hgb Conc. 33.9 g/dL (32.0-36.0); Mean Corpuscular Volume 86.5 fL (80.0-100.0); Monocytes # (auto) 0.7 10 ^3/uL (0-1.3); Monocytes % (auto) 7.5 % (0.0-12.0); Neutrophils # (auto) 7.2 10 ^3/uL (1.6-8.6); Neutrophils % (auto) 73.3 % (37.0-80.0); Red Blood Cells 4.76 10^6/uL (4.0-5.20); Red Cell Distribution Width 14.4 % (11.8-14.3); White Blood Cell 9.9 10^3/uL (4.4-10.8)
[2022-08-17 09:06] LABS: Alanine Aminotransferase 49 U/L (13-56); Albumin 3.1 g/dL (3.4-5.0); Aspartate Aminotransferase 24 U/L (15-37); BUN/Creatinine Ratio 20.4; Blood Urea Nitrogen 20 mg/dL (7-18); Calcium 8.9 mg/dL (8.5-10.1); Carbon Dioxide 32 mmol/L (21-32); GFR African American 84 mL/min; GFR Non-African American 69 mL/min; Glucose 131 mg/dL (74-106); Magnesium 2.2 mg/dL (1.6-2.6)
[2022-08-17 09:08] LABS: Alkaline Phosphatase 58 U/L (45-117); Anion Gap 7 (5-15); Bilirubin, Total 0.6 mg/dL (0.2-1.0); Chloride 100 mmol/L (98-107); Potassium 3.4 mmol/L (3.5-5.1); Sodium 139 mmol/L (136-145); Total Protein 6.7 g/dL (6.4-8.2)
[2022-08-17 09:12] LABS: INR 0.92 (0.9-1.15); Partial Thromboplastin Time 27.6 sec (24.6-33.4)
[2022-08-17] MEDS ORDERED: FUROSEMIDE 40 MG/4 ML VIAL IV ONE (13:15)
[2022-08-17] MEDS ORDERED: KETOROLAC TROMETH 30 MG/ML 1ML VIAL IV PRN (15:30)
[2022-08-17] MEDS ORDERED: KETOROLAC TROMETH 30 MG/ML 1ML VIAL IV ONE (15:30)
[2022-08-17] MEDS ORDERED: POTASSIUM EFFERVESENT TAB 25 MEQ PO ONE (15:45)
[2022-08-17] MEDS ORDERED: ACETAMINOPHEN 325 MG TAB PO PRN (15:45)
[2022-08-17] MEDS: SODIUM CHLORIDE 0.9% 1,000 ML IV SCH (15:45)
[2022-08-17 16:59] LABS: Cholesterol 168 mg/dL (< 200)
[2022-08-17 17:02] LABS: HDL Cholesterol 41 mg/dL (40-59); LDL Cholesterol 117 mg/dL (< 100); Triglycerides 100 mg/dL (< 150)
[2022-08-17] MEDS: CARVEDILOL 12.5 MG TAB PO SCH (21:03)
[2022-08-17] MEDS: hydrALAZINE HCL 20 MG/ML VL IV PRN (21:42)
[2022-08-17] MEDS ORDERED: ATORVASTATIN 20 MG TAB PO SCH (22:00)
[2022-08-18 06:21] LABS: Basophils # (auto) 0.1 10 ^3/uL (0-0.2); Basophils % (auto) 0.6 % (0.0-2.0); Eosinophils # (auto) 0.7 10 ^3/uL (0-0.8); Eosinophils % (auto) 7.7 % (0.0-7.0); Hematocrit 38.6 % (36.0-46.0); Hemoglobin 13.2 g/dL (12.2-16.2); Lymphocytes # (auto) 1.4 10 ^3/uL (0.4-5.4); Lymphocytes % (auto) 16.1 % (10.0-50.0); Mean Corpuscular Hemoglobin 29.8 pg (28.0-32.0); Mean Corpuscular Hgb Conc. 34.4 g/dL (32.0-36.0); Mean Corpuscular Volume 86.7 fL (80.0-100.0); Monocytes # (auto) 0.5 10 ^3/uL (0-1.3); Monocytes % (auto) 6.2 % (0.0-12.0); Neutrophils # (auto) 5.9 10 ^3/uL (1.6-8.6); Neutrophils % (auto) 69.4 % (37.0-80.0); Red Blood Cells 4.45 10^6/uL (4.0-5.20); Red Cell Distribution Width 14.2 % (11.8-14.3); White Blood Cell 8.6 10^3/uL (4.4-10.8)
[2022-08-18] MEDS ORDERED: ONDANSETRON HCL 4 MG/2 ML VIAL IV ONE (06:30)
[2022-08-18 06:45] LABS: Potassium 3.6 mmol/L (3.5-5.1)
[2022-08-18 06:53] LABS: Bilirubin, Total 0.6 mg/dL (0.2-1.0); Calcium 8.3 mg/dL (8.5-10.1); Total Protein 6.2 g/dL (6.4-8.2)
[2022-08-18] MEDS: hydrALAZINE HCL 20 MG/ML VL IV PRN (08:39)
[2022-08-18] MEDS: CARVEDILOL 12.5 MG TAB PO SCH (09:56)
[2022-08-18] MEDS ORDERED: ASPirin-EC 81 mg tab PO SCH (10:00)
[2022-08-18] MEDS ORDERED: ENOXAPARIN SOD 40 MG/0.4 ML SYRINGE SC SCH (10:00)
[2022-08-18] MEDS ORDERED: SPIRONOLACTONE 25 MG TAB PO SCH (10:00)
[2022-08-18] MEDS ORDERED: FAMOTIDINE 20 MG TAB PO SCH (10:00)
[2022-08-18] MEDS ORDERED: LOSARTAN POTASSIUM 50 MG TAB PO SCH (10:00)
[2022-08-18] MEDS ORDERED: NIFEdipine ER 30 MG TAB PO SCH ×2 (10:00)
[2022-08-18] MEDS: SODIUM CHLORIDE 0.9% 1,000 ML IV SCH (11:49)
[2022-08-18 19:30] VITALS: BP 129/61
[2022-08-18] MEDS ORDERED: PPN PER PHARMACY IV NR ×9 (20:00)
== END 2022-08-18 21:36 | disposition home or self-care (01) | DRG 199 ==
LOC: ER 03:31 → OVERFLOW 15:35
PROVIDERS: ADMIT Nurse Practitioner Family; ATTEND Internal Medicine
DX: I16.1 Hypertensive emergency (principal); I67.4 Hypertensive encephalopathy; E44.0 Moderate protein-calorie malnutrition; I50.9 Heart failure, unspecified; J02.9 Acute pharyngitis, unspecified; I11.0 Hypertensive heart disease with heart failure; E66.01 Morbid (severe) obesity due to excess calories; Z68.43 Body mass index [BMI] 50.0-59.9, adult; E78.5 Hyperlipidemia, unspecified; Z20.822 Contact with and (suspected) exposure to COVID-19; E87.6 Hypokalemia; G47.33 Obstructive sleep apnea (adult) (pediatric); Z81.8 Family history of other mental and behavioral disorders; Z82.3 Family history of stroke; Z82.49 Family history of ischemic heart disease and other diseases of the circulatory system; Z82.5 Family history of asthma and other chronic lower respiratory diseases; Z83.3 Family history of diabetes mellitus; Z91.14 Patient's other noncompliance with medication regimen
CPT/HCPCS: 36415; 71045; 80053; 80061; 81001; 83036; 83735; 84443; 84484; 84702; 85025; 85610; 85730; 87070; 87077; 87426; 87880; 93005; 93306; 96361; 96374; 96375; G0378; J1885; J2405

== ENCOUNTER 2022-10-18 03:36 | Inpatient (IN) | payer MEDICAID ==
[~2022-10-18] VITALS: Ht 154.9 cm; Wt 149.8 kg
[2022-10-18] MEDS ORDERED: ONDANSETRON ODT 4 MG TAB PO ONE (04:15)
[2022-10-18] MEDS ORDERED: cloNIDine HCL 0.1 MG TAB PO ONE (04:15)
[2022-10-18 04:29] LABS: Basophils # (auto) 0.1 10 ^3/uL (0-0.2); Eosinophils # (auto) 0 10 ^3/uL (0-0.8); Eosinophils % (auto) 0.5 % (0.0-7.0); Hematocrit 38.4 % (36.0-46.0); Hemoglobin 13.1 g/dL (12.2-16.2); Mean Corpuscular Hemoglobin 29.2 pg (28.0-32.0); Mean Corpuscular Hgb Conc. 34.1 g/dL (32.0-36.0); Mean Corpuscular Volume 85.6 fL (80.0-100.0); Monocytes # (auto) 0.4 10 ^3/uL (0-1.3); Monocytes % (auto) 8.2 % (0.0-12.0); Neutrophils # (auto) 3.9 10 ^3/uL (1.6-8.6); Neutrophils % (auto) 72.3 % (37.0-80.0); Nucleated Red Blood Cells % 0.4 %; Red Blood Cells 4.49 10^6/uL (4.0-5.20); Red Cell Distribution Width 15.7 % (11.8-14.3); White Blood Cell 5.4 10^3/uL (4.4-10.8)
[2022-10-18 04:38] LABS: Urine Bacteria NONE SEEN /hpf (None Seen); Urine Blood 3+ /uL (Negative); Urine Specific Gravity 1.021 (1.001-1.035); Urine WBC 5 /hpf (0 - 5)
[2022-10-18 04:47] LABS: Albumin 2.6 g/dL (3.4-5.0); BUN/Creatinine Ratio 14.6; Calcium 7.8 mg/dL (8.5-10.1); Potassium 3.2 mmol/L (3.5-5.1)
[2022-10-18 04:50] LABS: Bilirubin, Total 0.4 mg/dL (0.2-1.0); Total Protein 5.9 g/dL (6.4-8.2)
[2022-10-18] MEDS ORDERED: ASPirin 325 MG TAB PO ONE (05:30)
[2022-10-18] MEDS ORDERED: METOPROLOL TARTRATE 1MG/1ML-5ML VIAL IV ONE (05:30)
[2022-10-18] MEDS ORDERED: HEPARIN SODIUM (PORCINE) 5000 UNITS/ML 1ML VIAL IV ONE ×2 (05:45→15:15)
[2022-10-18] MEDS ORDERED: LACTATED RINGER'S 2,000 ML IV ONE (05:45)
[2022-10-18] MEDS ORDERED: HEPARIN DRIP/D5W 100UNITS/ML 250 ML IV SCH (05:45)
[2022-10-18] MEDS ORDERED: POTASSIUM CHL 20 Meq TABLET PO ONE (05:45)
[2022-10-18] MEDS ORDERED: POTASSIUM CHL 20MEQ/100ML 100 ML IV ONE (05:45)
[2022-10-18 07:01] LABS: INR 0.98 (0.9-1.15); Partial Thromboplastin Time 28.1 sec (24.6-33.4)
[2022-10-18] MEDS ORDERED: hydrALAZINE HCL 20 MG/ML VL IV ONE (08:45)
[2022-10-18] MEDS ORDERED: ONDANSETRON HCL 4 MG/2 ML VIAL IV PRN (09:15)
[2022-10-18] MEDS ORDERED: PANTOPRAZOLE 40 MG/10 ML VIAL INJ IV ONE (09:15)
[2022-10-18] MEDS ORDERED: SODIUM CHLORIDE 0.9% 1,000 ML IV SCH (09:15)
[2022-10-18] MEDS ORDERED: POTASSIUM EFFERVESENT TAB 25 MEQ PO ONE (09:15)
[2022-10-18] MEDS ORDERED: NITROGLYCERIN 0.4 MG SL TAB SL PRN (09:15)
[2022-10-18] MEDS ORDERED: MORPHINE SULFATE INJ 2 MG/ml SYRG IV PRN (09:15)
[2022-10-18] MEDS ORDERED: PANTOPRAZOLE 40 MG/10 ML VIAL INJ IV SCH (10:00)
[2022-10-18] MEDS: SPIRONOLACTONE 25 MG TAB PO SCH (10:07)
[2022-10-18] MEDS: ASPirin 81 mg TAB PO SCH (10:08)
[2022-10-18] MEDS: FUROSEMIDE 20 MG/2 ML VIAL IV SCH (10:09)
[2022-10-18] MEDS: LOSARTAN POTASSIUM 50 MG TAB PO SCH (10:10)
[2022-10-18] MEDS: CARVEDILOL 12.5 MG TAB PO SCH ×2 (10:11→22:32)
[2022-10-18] MEDS: NIFEdipine ER 30 MG TAB PO SCH (10:13)
[2022-10-18] MEDS: FAMOTIDINE 20 MG TAB PO SCH ×2 (10:14→22:31)
[2022-10-18 14:55] LABS: INR 0.96 (0.9-1.15); Partial Thromboplastin Time 32.5 sec (24.6-33.4)
[2022-10-18] MEDS: HEPARIN DRIP/D5W 100UNITS/ML 250 ML IV SCH (15:12)
[2022-10-18] MEDS: ATORVASTATIN 20 MG TAB PO SCH (22:29)
[2022-10-18] MEDS: PRAMIPEXOLE DIHYDROCHLORIDE MO 0.25 MG TAB PO SCH (22:31)
[2022-10-19] MEDS: guaiFENesin-CODEINE Liq 5 ML UD PO PRN ×3 (02:06→22:47)
[2022-10-19] MEDS: HEPARIN DRIP/D5W 100UNITS/ML 250 ML IV SCH (04:17)
[2022-10-19 06:31] LABS: Basophils # (auto) 0 10 ^3/uL (0-0.2); Basophils % (auto) 0.4 % (0.0-2.0); Eosinophils # (auto) 0.1 10 ^3/uL (0-0.8); Hematocrit 37.7 % (36.0-46.0); Hemoglobin 12.7 g/dL (12.2-16.2); Lymphocytes # (auto) 1.2 10 ^3/uL (0.4-5.4); Lymphocytes % (auto) 26.5 % (10.0-50.0); Mean Corpuscular Hgb Conc. 33.6 g/dL (32.0-36.0); Mean Corpuscular Volume 86.2 fL (80.0-100.0); Monocytes # (auto) 0.4 10 ^3/uL (0-1.3); Monocytes % (auto) 8.9 % (0.0-12.0); Neutrophils # (auto) 2.9 10 ^3/uL (1.6-8.6); Neutrophils % (auto) 62.2 % (37.0-80.0); Nucleated Red Blood Cells % 0.2 %; Red Blood Cells 4.37 10^6/uL (4.0-5.20); Red Cell Distribution Width 15.4 % (11.8-14.3); White Blood Cell 4.6 10^3/uL (4.4-10.8)
[2022-10-19 06:59] LABS: INR 0.93 (0.9-1.15); Partial Thromboplastin Time 46.5 sec (24.6-33.4)
[2022-10-19 07:00] LABS: Potassium 3.6 mmol/L (3.5-5.1)
[2022-10-19 07:16] LABS: Albumin 2.6 g/dL (3.4-5.0); BUN/Creatinine Ratio 17.2; Bilirubin, Total 0.6 mg/dL (0.2-1.0); Calcium 7.8 mg/dL (8.5-10.1); Total Protein 6.2 g/dL (6.4-8.2)
[2022-10-19] MEDS ORDERED: HEPARIN DRIP/D5W 100UNITS/ML 250 ML IV SCH (08:30)
[2022-10-19] MEDS: ASPirin 81 mg TAB PO SCH (09:43)
[2022-10-19] MEDS: NIFEdipine ER 30 MG TAB PO SCH (09:43)
[2022-10-19] MEDS: FAMOTIDINE 20 MG TAB PO SCH ×2 (09:44→22:48)
[2022-10-19] MEDS: CARVEDILOL 12.5 MG TAB PO SCH ×2 (09:44→22:46)
[2022-10-19] MEDS: SPIRONOLACTONE 25 MG TAB PO SCH (09:44)
[2022-10-19] MEDS: LOSARTAN POTASSIUM 50 MG TAB PO SCH (09:45)
[2022-10-19] MEDS: FUROSEMIDE 20 MG/2 ML VIAL IV SCH ×2 (09:45→22:45)
[2022-10-19] MEDS ORDERED: NITROFURANTOIN 100 mg CAP PO ONE (11:15)
[2022-10-19] MEDS ORDERED: POTASSIUM EFFERVESENT TAB 25 MEQ PO ONE (11:15)
[2022-10-19] MEDS: hydrALAZINE HCL 20 MG/ML VL IV PRN ×2 (13:48→20:52)
[2022-10-19] MEDS ORDERED: FUROSEMIDE 40 MG/4 ML VIAL IV ONE (16:00)
[2022-10-19] MEDS ORDERED: ALBUTEROL SULF 2.5 MG/0.5ML(0.5%) NEB SOLN NEB PRN (16:00)
[2022-10-19 16:20] VITALS: BP 161/84
[2022-10-19] MEDS: IPRATROPIUM BROM 0.5 MG/2.5ML INH SOL NEB SCH (18:37)
[2022-10-19] MEDS: ALBUTEROL SULF 2.5 MG/0.5ML(0.5%) NEB SOLN NEB SCH (18:37)
[2022-10-19 22:11] VITALS: BP 165/84
[2022-10-19] MEDS: ATORVASTATIN 20 MG TAB PO SCH (22:46)
[2022-10-19] MEDS: PRAMIPEXOLE DIHYDROCHLORIDE MO 0.25 MG TAB PO SCH (22:46)
[2022-10-19] MEDS: ACETAMINOPHEN 325 MG TAB PO PRN (22:47)
[2022-10-19] MEDS: NITROFURANTOIN 100 mg CAP PO SCH (22:47)
[2022-10-20] MEDS: ALBUTEROL SULF 2.5 MG/0.5ML(0.5%) NEB SOLN NEB SCH ×5 (00:32→23:31)
[2022-10-20] MEDS: IPRATROPIUM BROM 0.5 MG/2.5ML INH SOL NEB SCH ×5 (00:32→23:31)
[2022-10-20 05:00] VITALS: BP 145/70
[2022-10-20 06:19] LABS: Basophils # (auto) 0 10 ^3/uL (0-0.2); Basophils % (auto) 0.3 % (0.0-2.0); Eosinophils # (auto) 0 10 ^3/uL (0-0.8); Eosinophils % (auto) 0.7 % (0.0-7.0); Hematocrit 37.5 % (36.0-46.0); Hemoglobin 12.7 g/dL (12.2-16.2); Lymphocytes # (auto) 0.9 10 ^3/uL (0.4-5.4); Lymphocytes % (auto) 22.4 % (10.0-50.0); Mean Corpuscular Hemoglobin 29.2 pg (28.0-32.0); Mean Corpuscular Hgb Conc. 33.9 g/dL (32.0-36.0); Mean Corpuscular Volume 86.1 fL (80.0-100.0); Monocytes # (auto) 0.4 10 ^3/uL (0-1.3); Neutrophils # (auto) 2.6 10 ^3/uL (1.6-8.6); Neutrophils % (auto) 66.6 % (37.0-80.0); Nucleated Red Blood Cells % 0.5 %; Red Blood Cells 4.36 10^6/uL (4.0-5.20); Red Cell Distribution Width 15.5 % (11.8-14.3); White Blood Cell 3.9 10^3/uL (4.4-10.8)
[2022-10-20] MEDS: EMPAGLIFLOZIN 10 MG TAB PO SCH (06:19)
[2022-10-20] MEDS: guaiFENesin-CODEINE Liq 5 ML UD PO PRN (06:29)
[2022-10-20 06:37] LABS: Potassium 4.2 mmol/L (3.5-5.1)
[2022-10-20 06:44] LABS: Albumin 2.5 g/dL (3.4-5.0); BUN/Creatinine Ratio 16.3; Calcium 7.7 mg/dL (8.5-10.1)
[2022-10-20 06:48] LABS: Bilirubin, Total 0.3 mg/dL (0.2-1.0); Total Protein 5.8 g/dL (6.4-8.2)
[2022-10-20 08:00] VITALS: BP 119/63
[2022-10-20 09:00] VITALS: BP 128/76
[2022-10-20] MEDS: ASPirin 81 mg TAB PO SCH (09:42)
[2022-10-20] MEDS: FUROSEMIDE 20 MG/2 ML VIAL IV SCH ×2 (09:42→21:06)
[2022-10-20] MEDS: SPIRONOLACTONE 25 MG TAB PO SCH (09:43)
[2022-10-20] MEDS: CARVEDILOL 12.5 MG TAB PO SCH ×2 (09:44→21:06)
[2022-10-20] MEDS: POTASSIUM EFFERVESENT TAB 25 MEQ PO SCH (09:45)
[2022-10-20] MEDS: FAMOTIDINE 20 MG TAB PO SCH ×2 (09:46→21:05)
[2022-10-20] MEDS: NIFEdipine ER 30 MG TAB PO SCH (09:47)
[2022-10-20] MEDS: ACETAMINOPHEN 325 MG TAB PO PRN (09:47)
[2022-10-20] MEDS: NITROFURANTOIN 100 mg CAP PO SCH ×2 (09:48→21:05)
[2022-10-20] MEDS: LOSARTAN POTASSIUM 50 MG TAB PO SCH (09:48)
[2022-10-20] MEDS ORDERED: methylPREDNISolone SOD SUCC 40 MG/ML VL IV ONE (11:45)
[2022-10-20 13:00] VITALS: BP 119/63
[2022-10-20 17:00] VITALS: BP 119/76
[2022-10-20] MEDS: ATORVASTATIN 20 MG TAB PO SCH (21:05)
[2022-10-20] MEDS: PRAMIPEXOLE DIHYDROCHLORIDE MO 0.25 MG TAB PO SCH (21:05)
[2022-10-20 22:00] VITALS: BP 136/80
[2022-10-21 05:00] VITALS: BP 125/62
[2022-10-21] MEDS: EMPAGLIFLOZIN 10 MG TAB PO SCH (06:03)
[2022-10-21 07:12] LABS: Basophils # (auto) 0 10 ^3/uL (0-0.2); Basophils % (auto) 0.2 % (0.0-2.0); Eosinophils # (auto) 0 10 ^3/uL (0-0.8); Eosinophils % (auto) 0.1 % (0.0-7.0); Hemoglobin 12.5 g/dL (12.2-16.2); Lymphocytes # (auto) 0.9 10 ^3/uL (0.4-5.4); Lymphocytes % (auto) 23.5 % (10.0-50.0); Mean Corpuscular Hgb Conc. 34.7 g/dL (32.0-36.0); Mean Corpuscular Volume 86.4 fL (80.0-100.0); Monocytes # (auto) 0.4 10 ^3/uL (0-1.3); Monocytes % (auto) 11.8 % (0.0-12.0); Neutrophils # (auto) 2.4 10 ^3/uL (1.6-8.6); Neutrophils % (auto) 64.4 % (37.0-80.0); Red Blood Cells 4.17 10^6/uL (4.0-5.20); Red Cell Distribution Width 15.2 % (11.8-14.3); White Blood Cell 3.7 10^3/uL (4.4-10.8)
[2022-10-21] MEDS: ALBUTEROL SULF 2.5 MG/0.5ML(0.5%) NEB SOLN NEB SCH ×3 (07:22→19:13)
[2022-10-21] MEDS: IPRATROPIUM BROM 0.5 MG/2.5ML INH SOL NEB SCH ×3 (07:22→19:13)
[2022-10-21 08:00] VITALS: BP 150/85
[2022-10-21 08:16] LABS: BUN/Creatinine Ratio 23.3; Calcium 8.1 mg/dL (8.5-10.1)
[2022-10-21 08:52] VITALS: BP 150/85
[2022-10-21] MEDS: cefTRIAXone 1GM/50ML D5W 50 ML IV SCH (09:03)
[2022-10-21] MEDS: SPIRONOLACTONE 25 MG TAB PO SCH (10:32)
[2022-10-21] MEDS: ASPirin 81 mg TAB PO SCH (10:32)
[2022-10-21] MEDS: AZITHROMYCIN 500MG/ 250ML 250 ML IV SCH (10:32)
[2022-10-21] MEDS: methylPREDNISolone SOD SUCC 40 MG/ML VL IV SCH (10:32)
[2022-10-21] MEDS: FUROSEMIDE 20 MG/2 ML VIAL IV SCH ×2 (10:32→21:12)
[2022-10-21] MEDS: LOSARTAN POTASSIUM 50 MG TAB PO SCH (10:35)
[2022-10-21] MEDS: CARVEDILOL 12.5 MG TAB PO SCH ×2 (10:35→21:12)
[2022-10-21] MEDS: NITROFURANTOIN 100 mg CAP PO SCH ×2 (10:36→21:10)
[2022-10-21] MEDS: FAMOTIDINE 20 MG TAB PO SCH ×2 (10:36→21:11)
[2022-10-21] MEDS: POTASSIUM EFFERVESENT TAB 25 MEQ PO SCH (10:36)
[2022-10-21] MEDS: NIFEdipine ER 30 MG TAB PO SCH (10:36)
[2022-10-21] MEDS: guaiFENesin-CODEINE Liq 5 ML UD PO PRN ×2 (12:04→19:57)
[2022-10-21 13:00] VITALS: BP 114/73
[2022-10-21 17:00] VITALS: BP 139/77
[2022-10-21] MEDS: ATORVASTATIN 20 MG TAB PO SCH (21:10)
[2022-10-21] MEDS: PRAMIPEXOLE DIHYDROCHLORIDE MO 0.25 MG TAB PO SCH (21:10)
[2022-10-21 22:00] VITALS: BP 129/76
[2022-10-22] MEDS: IPRATROPIUM BROM 0.5 MG/2.5ML INH SOL NEB SCH ×3 (00:28→12:08)
[2022-10-22] MEDS: ALBUTEROL SULF 2.5 MG/0.5ML(0.5%) NEB SOLN NEB SCH ×3 (00:28→12:08)
[2022-10-22] MEDS: guaiFENesin-CODEINE Liq 5 ML UD PO PRN ×2 (02:36→10:25)
[2022-10-22 05:00] VITALS: BP 161/90
[2022-10-22] MEDS: EMPAGLIFLOZIN 10 MG TAB PO SCH (06:04)
[2022-10-22] MEDS: hydrALAZINE HCL 20 MG/ML VL IV PRN (06:04)
[2022-10-22 06:19] LABS: Basophils # (auto) 0 10 ^3/uL (0-0.2); Basophils % (auto) 0.2 % (0.0-2.0); Eosinophils # (auto) 0 10 ^3/uL (0-0.8); Eosinophils % (auto) 0.1 % (0.0-7.0); Hematocrit 39.2 % (36.0-46.0); Hemoglobin 12.7 g/dL (12.2-16.2); Lymphocytes # (auto) 1.3 10 ^3/uL (0.4-5.4); Lymphocytes % (auto) 20.6 % (10.0-50.0); Mean Corpuscular Hemoglobin 28.6 pg (28.0-32.0); Mean Corpuscular Hgb Conc. 32.5 g/dL (32.0-36.0); Mean Corpuscular Volume 87.9 fL (80.0-100.0); Monocytes # (auto) 0.6 10 ^3/uL (0-1.3); Monocytes % (auto) 9.1 % (0.0-12.0); Neutrophils # (auto) 4.5 10 ^3/uL (1.6-8.6); Nucleated Red Blood Cells % 0.1 %; Red Blood Cells 4.45 10^6/uL (4.0-5.20); Red Cell Distribution Width 15.5 % (11.8-14.3); White Blood Cell 6.5 10^3/uL (4.4-10.8)
[2022-10-22 06:38] LABS: BUN/Creatinine Ratio 25.4; Calcium 8.4 mg/dL (8.5-10.1); Potassium 4.5 mmol/L (3.5-5.1)
[2022-10-22 09:00] VITALS: BP 150/80
[2022-10-22] MEDS: POTASSIUM EFFERVESENT TAB 25 MEQ PO SCH (10:00)
[2022-10-22] MEDS ORDERED: NIFEdipine ER 30 MG TAB PO SCH (10:00)
[2022-10-22] MEDS: cefTRIAXone 1GM/50ML D5W 50 ML IV SCH (10:25)
[2022-10-22] MEDS: NITROFURANTOIN 100 mg CAP PO SCH (10:26)
[2022-10-22] MEDS: methylPREDNISolone SOD SUCC 40 MG/ML VL IV SCH (10:26)
[2022-10-22] MEDS: FUROSEMIDE 20 MG/2 ML VIAL IV SCH (10:26)
[2022-10-22] MEDS: CARVEDILOL 12.5 MG TAB PO SCH (10:27)
[2022-10-22] MEDS: SPIRONOLACTONE 25 MG TAB PO SCH (10:27)
[2022-10-22] MEDS: LOSARTAN POTASSIUM 50 MG TAB PO SCH (10:27)
[2022-10-22] MEDS: ASPirin 81 mg TAB PO SCH (10:27)
[2022-10-22] MEDS: FAMOTIDINE 20 MG TAB PO SCH (10:29)
[2022-10-22] MEDS ORDERED: CAR125T PO (10:41)
[2022-10-22] MEDS ORDERED: AMOX500T86 PO (10:41)
[2022-10-22] MEDS ORDERED: LOSA-69 PO (10:41)
[2022-10-22] MEDS ORDERED: PRED20TA2 PO (10:41)
[2022-10-22] MEDS: AZITHROMYCIN 500MG/ 250ML 250 ML IV SCH (12:29)
[2022-10-22 13:00] VITALS: BP 125/75
[2022-10-22 15:12] VITALS: BP 150/80
[2022-10-22 16:37] VITALS: BP 115/74
== END 2022-10-22 19:01 | disposition home or self-care (01) | DRG 190 ==
LOC: ER 03:36 → TELE 09:01 → TELE-WESTW 10-19 22:11
PROVIDERS: ADMIT Nurse Practitioner Family; ATTEND Internal Medicine Pulmonary Disease
DX: I21.4 Non-ST elevation (NSTEMI) myocardial infarction (principal); J96.01 Acute respiratory failure with hypoxia; N17.9 Acute kidney failure, unspecified; E46 Unspecified protein-calorie malnutrition; I11.0 Hypertensive heart disease with heart failure; J18.9 Pneumonia, unspecified organism; I50.9 Heart failure, unspecified; E83.51 Hypocalcemia; E86.0 Dehydration; J45.901 Unspecified asthma with (acute) exacerbation; I16.1 Hypertensive emergency; R04.2 Hemoptysis; E66.01 Morbid (severe) obesity due to excess calories; E78.5 Hyperlipidemia, unspecified; E87.6 Hypokalemia; G47.33 Obstructive sleep apnea (adult) (pediatric); R73.9 Hyperglycemia, unspecified; R74.01 Elevation of levels of liver transaminase levels; Z20.822 Contact with and (suspected) exposure to COVID-19; K80.20 Calculus of gallbladder without cholecystitis without obstruction; R50.9 Fever, unspecified; Z68.44 Body mass index [BMI] 60.0-69.9, adult; Z79.82 Long term (current) use of aspirin; Z81.8 Family history of other mental and behavioral disorders; Z82.3 Family history of stroke; Z82.49 Family history of ischemic heart disease and other diseases of the circulatory system; Z82.5 Family history of asthma and other chronic lower respiratory diseases; Z83.3 Family history of diabetes mellitus
CPT/HCPCS: 36415; 36600; 70450; 71045; 71250; 74176; 76881; 80048; 80053; 81001; 82550; 82805; 83036; 83690; 83735; 83880; 84443; 84484; 85025; 85610; 85730; 87040; 87070; 87205; 87426; 93005; 94640; 96361; 96374; 96375; 99291; C9113; G0378; J0696; J2405; J3480; Q0162

== ENCOUNTER 2023-04-04 13:24 | Emergency (ER) | payer MEDICAID ==
[~2023-04-04 13:24] MED LIST changes: +AMOX500T86 PO; -LOSA-69 PO; +LOSA50TA46 PO; +PRED20TA2 PO
[2023-04-04] MEDS ORDERED: AUG875T PO (15:23)
[2023-04-04] MEDS ORDERED: PRED20TA2 PO (15:23)
[2023-04-04 15:34] VITALS: TEMP 97.2
[2023-04-04] MEDS ORDERED: cloNIDine HCL 0.1 MG TAB PO ONE (15:45)
[2023-04-04 16:10] VITALS: BP 179/90; PULSE 71; RESP 19; O2SAT 96
== END 2023-04-04 16:19 | disposition home or self-care (01) ==
LOC: ER 13:24
DX: J03.90 Acute tonsillitis, unspecified (principal); H66.93 Otitis media, unspecified, bilateral; E78.5 Hyperlipidemia, unspecified; I11.0 Hypertensive heart disease with heart failure; I50.89 Other heart failure; Z79.899 Other long term (current) drug therapy; Z98.890 Other specified postprocedural states

== ENCOUNTER 2023-07-16 05:37 | Inpatient (IN) | payer MEDICAID ==
[2023-07-16] VITALS (7 sets, daily range): BP systolic 176–231; BP diastolic 77–134; PULSE 76–104; RESP 17–36; TEMP 97.9–98; O2SAT 92–98
[~2023-07-16] VITALS: Ht 154.9 cm; Wt 139.0 kg
[~2023-07-16 05:37] MED LIST changes: +AUG875T PO
[2023-07-16 06:15] LABS: Basophils # (auto) 0 10 ^3/uL (0-0.2); Basophils % (auto) 0.6 % (0.0-2.0); Eosinophils # (auto) 0.4 10 ^3/uL (0-0.8); Lymphocytes # (auto) 1.4 10 ^3/uL (0.4-5.4); Monocytes # (auto) 0.7 10 ^3/uL (0-1.3); Neutrophils # (auto) 5.6 10 ^3/uL (1.6-8.6); White Blood Cell 8.1 10^3/uL (4.4-10.8)
[2023-07-16] MEDS ORDERED: hydrALAZINE HCL 20 MG/ML VL IV ONE (06:15)
[2023-07-16 06:19] LABS: Eosinophils % (auto) 4.7 % (0.0-7.0); Hematocrit 36.9 % (36.0-46.0); Hemoglobin 12.1 g/dL (12.2-16.2); Lymphocytes % (auto) 17.3 % (10.0-50.0); Mean Corpuscular Hemoglobin 27.3 pg (28.0-32.0); Mean Corpuscular Hgb Conc. 32.8 g/dL (32.0-36.0); Mean Corpuscular Volume 83.2 fL (80.0-100.0); Neutrophils % (auto) 69.4 % (37.0-80.0); Nucleated Red Blood Cells % 0.1 %; Red Blood Cells 4.43 10^6/uL (4.0-5.20); Red Cell Distribution Width 16.7 % (11.8-14.3)
[2023-07-16 06:25] LABS: Alanine Aminotransferase 32 U/L (7-40); Alkaline Phosphatase 56 U/L (46-116); Anion Gap 6 (5-15); Aspartate Aminotransferase 27 U/L (13-40); BUN/Creatinine Ratio 16.2 (10.0-20.0); Bilirubin, Total 0.5 mg/dL (0.2-1.0); Blood Urea Nitrogen 19 mg/dL (9-23); Calcium 9.4 mg/dL (8.5-10.1); Carbon Dioxide 30 mmol/L (20-30); Chloride 104 mmol/L (98-107); Glucose 130 mg/dL (74-106); Potassium 3.6 mmol/L (3.5-5.1); Sodium 140 mmol/L (136-145); Total Protein 6.3 g/dL (5.7-8.2)
[2023-07-16 06:51] LABS: COVID19 ANTIGEN SOFIA FIA NEGATIVE (NEGATIVE); Rapid Influenza A Negative (Negative); Rapid Influenza B Negative (Negative)
[2023-07-16] MEDS ORDERED: FUROSEMIDE 100 MG/10ML VIAL IV ONE (08:00)
[2023-07-16] MEDS ORDERED: NITROGLYCERIN 2% OINT 1GM PKG TD ONE (08:00)
[2023-07-16] MEDS ORDERED: IOHEXOL 350 MG/ML 100ML IJ ONE (08:22)
[2023-07-16] MEDS ORDERED: ALBUTEROL SULF 2.5 MG/0.5ML(0.5%) NEB SOLN NEB PRN (09:15)
[2023-07-16] MEDS ORDERED: MORPHINE SULFATE INJ 2 MG/ml SYRG IV PRN ×2 (09:15)
[2023-07-16] MEDS ORDERED: ONDANSETRON HCL 4 MG/2 ML VIAL IV PRN (09:15)
[2023-07-16] MEDS ORDERED: IPRATROPIUM BROM 0.5 MG/2.5ML INH SOL NEB PRN (09:15)
[2023-07-16] MEDS ORDERED: NITROGLYCERIN 0.4 MG SL TAB SL PRN (09:15)
[2023-07-16] MEDS ORDERED: DOCUSATE SOD 100 MG CAP PO PRN (09:15)
[2023-07-16] MEDS: cefTRIAXone 1GM/50ML D5W 50 ML IV SCH (10:05)
[2023-07-16 10:46] LABS: Urine Bacteria FEW /hpf (None Seen); Urine Blood 1+ /uL (Negative); Urine Clarity Clear (Clear); Urine Protein, UAD Negative (Negative); Urine Specific Gravity 1.005 (1.001-1.035); Urine Urobilinogen Normal (Negative); Urine WBC 1 /hpf (0 - 5); Urine pH 7.5 (5.0-8.0)
[2023-07-16 10:52] LABS: Urine Color Yellow (Yellow)
[2023-07-16] MEDS: ASPirin 81 mg TAB PO SCH (11:12)
[2023-07-16] MEDS: CARVEDILOL 12.5 MG TAB PO SCH ×2 (11:12→23:43)
[2023-07-16] MEDS: SPIRONOLACTONE 25 MG TAB PO SCH (11:13)
[2023-07-16] MEDS: LISINOPRIL 20 MG TAB PO SCH (11:14)
[2023-07-16] MEDS ORDERED: NIFEdipine ER 30 MG TAB PO ONE (16:15)
[2023-07-16] MEDS: LABETALOL HCL 5 MG/ML 4ML SYRINGE IV PRN ×3 (17:38→23:46)
[2023-07-17] VITALS (11 sets, daily range): BP systolic 126–163; BP diastolic 68–84; PULSE 66–79; RESP 19–22; TEMP 97.1–98.7; O2SAT 91–99
[2023-07-17] MEDS ORDERED: FURO1TAB33 PO (00:47)
[2023-07-17] MEDS: HYDROcodone-ACET 5/325MG TAB PO PRN (01:45)
[2023-07-17] MEDS: LABETALOL HCL 5 MG/ML 4ML SYRINGE IV PRN (01:59)
[2023-07-17 07:44] LABS: Basophils # (auto) 0 10 ^3/uL (0-0.2); Eosinophils # (auto) 0.4 10 ^3/uL (0-0.8); Monocytes # (auto) 0.8 10 ^3/uL (0-1.3); Monocytes % (auto) 8.3 % (0.0-12.0); Neutrophils # (auto) 6.5 10 ^3/uL (1.6-8.6)
[2023-07-17 07:47] LABS: Basophils % (auto) 0.5 % (0.0-2.0); Eosinophils % (auto) 4.2 % (0.0-7.0); Hematocrit 34.2 % (36.0-46.0); Hemoglobin 11.1 g/dL (12.2-16.2); Lymphocytes # (auto) 1.4 10 ^3/uL (0.4-5.4); Lymphocytes % (auto) 15.3 % (10.0-50.0); Mean Corpuscular Hemoglobin 27.4 pg (28.0-32.0); Mean Corpuscular Hgb Conc. 32.5 g/dL (32.0-36.0); Mean Corpuscular Volume 84.2 fL (80.0-100.0); Neutrophils % (auto) 71.7 % (37.0-80.0); Red Blood Cells 4.06 10^6/uL (4.0-5.20); Red Cell Distribution Width 17.3 % (11.8-14.3); White Blood Cell 9.1 10^3/uL (4.4-10.8)
[2023-07-17 08:02] LABS: Anion Gap 7 (5-15); Carbon Dioxide 31 mmol/L (20-30); Chloride 102 mmol/L (98-107); Potassium 3.4 mmol/L (3.5-5.1); Sodium 140 mmol/L (136-145)
[2023-07-17 08:07] LABS: BUN/Creatinine Ratio 11.4 (10.0-20.0); Blood Urea Nitrogen 19 mg/dL (9-23); Glucose 90 mg/dL (74-106)
[2023-07-17] MEDS: FUROSEMIDE 40 MG/4 ML VIAL IV SCH (09:11)
[2023-07-17] MEDS: cefTRIAXone 1GM/50ML D5W 50 ML IV SCH (09:11)
[2023-07-17] MEDS: NIFEdipine ER 30 MG TAB PO SCH (09:17)
[2023-07-17] MEDS: LISINOPRIL 20 MG TAB PO SCH (09:17)
[2023-07-17] MEDS: ASPirin 81 mg TAB PO SCH (09:18)
[2023-07-17] MEDS: CARVEDILOL 12.5 MG TAB PO SCH ×2 (09:18→22:00)
[2023-07-17] MEDS: SPIRONOLACTONE 25 MG TAB PO SCH (09:19)
[2023-07-18] VITALS (8 sets, daily range): BP systolic 122–150; BP diastolic 68–94; PULSE 67–75; RESP 17–20; TEMP 98.1–98.6; O2SAT 94–99
[2023-07-18] MEDS: HYDROcodone-ACET 5/325MG TAB PO PRN (04:12)
[2023-07-18] MEDS: cefTRIAXone 1GM/50ML D5W 50 ML IV SCH (08:49)
[2023-07-18] MEDS: FUROSEMIDE 40 MG/4 ML VIAL IV SCH (10:32)
[2023-07-18] MEDS: ASPirin 81 mg TAB PO SCH (10:32)
[2023-07-18] MEDS: CARVEDILOL 12.5 MG TAB PO SCH ×2 (10:33→22:29)
[2023-07-18] MEDS: NIFEdipine ER 30 MG TAB PO SCH (10:33)
[2023-07-18] MEDS: LISINOPRIL 20 MG TAB PO SCH (10:33)
[2023-07-18] MEDS: SPIRONOLACTONE 25 MG TAB PO SCH (10:34)
[2023-07-19] VITALS (11 sets, daily range): BP systolic 151–179; BP diastolic 75–101; PULSE 64–70; RESP 15–20; TEMP 97.5–98.5; O2SAT 92–98
[2023-07-19] MEDS ORDERED: MELATONIN 5 MG TAB PO ONE (02:45)
[2023-07-19] MEDS: LABETALOL HCL 5 MG/ML 4ML SYRINGE IV PRN (07:04)
[2023-07-19] MEDS: cefTRIAXone 1GM/50ML D5W 50 ML IV SCH (08:52)
[2023-07-19] MEDS: NIFEdipine ER 30 MG TAB PO SCH (08:53)
[2023-07-19 09:08] LABS: Chloride 104 mmol/L (98-107); Potassium 4.1 mmol/L (3.5-5.1); Sodium 139 mmol/L (136-145)
[2023-07-19 09:09] LABS: Anion Gap 5 (5-15); Carbon Dioxide 30 mmol/L (20-30)
[2023-07-19 09:10] LABS: Calcium 9.3 mg/dL (8.5-10.1)
[2023-07-19] MEDS: ASPirin 81 mg TAB PO SCH (09:11)
[2023-07-19] MEDS: SPIRONOLACTONE 25 MG TAB PO SCH (09:13)
[2023-07-19] MEDS: VALSARTAN 80 MG TAB PO SCH (09:13)
[2023-07-19 09:14] LABS: BUN/Creatinine Ratio 16.4 (10.0-20.0); Blood Urea Nitrogen 24 mg/dL (9-23); Glucose 164 mg/dL (74-106)
[2023-07-19] MEDS: FUROSEMIDE 40 MG/4 ML VIAL IV SCH (09:14)
[2023-07-19] MEDS: CARVEDILOL 12.5 MG TAB PO SCH ×2 (09:18→21:18)
[2023-07-19] MEDS ORDERED: GADOTERATE MEG 10 MMOL/20ml INJ (0.5MMOL/ml) IV ONE (09:43)
[2023-07-19] MEDS: HYDROcodone-ACET 5/325MG TAB PO PRN (15:48)
[2023-07-19] MEDS ORDERED: MELATONIN 5 MG TAB PO PRN (21:15)
[2023-07-19] MEDS: ACETAMINOPHEN 500 MG TAB PO PRN (21:22)
[2023-07-20] VITALS (10 sets, daily range): BP systolic 141–193; BP diastolic 77–96; PULSE 61–70; RESP 18–20; TEMP 97.7–98.2; O2SAT 95–98
[2023-07-20] MEDS: LABETALOL HCL 5 MG/ML 4ML SYRINGE IV PRN ×4 (01:04→20:01)
[2023-07-20] MEDS: ASPirin 81 mg TAB PO SCH (09:22)
[2023-07-20] MEDS: NIFEdipine ER 30 MG TAB PO SCH (09:23)
[2023-07-20] MEDS: CARVEDILOL 12.5 MG TAB PO SCH ×2 (09:23→21:20)
[2023-07-20] MEDS: ACETAMINOPHEN 500 MG TAB PO PRN (09:25)
[2023-07-20] MEDS: cefTRIAXone 1GM/50ML D5W 50 ML IV SCH (09:25)
[2023-07-20] MEDS: FUROSEMIDE 40 MG/4 ML VIAL IV SCH (09:58)
[2023-07-20] MEDS: SPIRONOLACTONE 25 MG TAB PO SCH (09:58)
[2023-07-20] MEDS: VALSARTAN 80 MG TAB PO SCH (10:00)
[2023-07-21] MEDS: LABETALOL HCL 5 MG/ML 4ML SYRINGE IV PRN ×2 (04:04→16:10)
[2023-07-21 04:40] VITALS: BP 170/86; PULSE 63; RESP 20; TEMP 98.6; O2SAT 97
[2023-07-21 08:00] VITALS: PULSE 60
[2023-07-21 08:15] VITALS: PULSE 64; RESP 16
[2023-07-21 08:35] LABS: Basophils # (auto) 0.1 10 ^3/uL (0-0.2); Basophils % (auto) 0.9 % (0.0-2.0); Eosinophils # (auto) 0.4 10 ^3/uL (0-0.8); Eosinophils % (auto) 4.8 % (0.0-7.0); Hemoglobin 12.3 g/dL (12.2-16.2); Lymphocytes # (auto) 1.2 10 ^3/uL (0.4-5.4); Lymphocytes % (auto) 14.8 % (10.0-50.0); Mean Corpuscular Hemoglobin 27.5 pg (28.0-32.0); Mean Corpuscular Hgb Conc. 32.4 g/dL (32.0-36.0); Monocytes # (auto) 0.8 10 ^3/uL (0-1.3); Monocytes % (auto) 9.6 % (0.0-12.0); Neutrophils # (auto) 5.7 10 ^3/uL (1.6-8.6); Neutrophils % (auto) 69.9 % (37.0-80.0); Red Blood Cells 4.47 10^6/uL (4.0-5.20); White Blood Cell 8.2 10^3/uL (4.4-10.8)
[2023-07-21 08:46] LABS: Anion Gap 4 (5-15); Carbon Dioxide 31 mmol/L (20-30); Chloride 102 mmol/L (98-107); Potassium 3.9 mmol/L (3.5-5.1); Sodium 137 mmol/L (136-145)
[2023-07-21 08:47] LABS: Calcium 9.8 mg/dL (8.5-10.1)
[2023-07-21 08:51] LABS: Glucose 121 mg/dL (74-106)
[2023-07-21 08:52] LABS: BUN/Creatinine Ratio 12.9 (10.0-20.0); Blood Urea Nitrogen 17 mg/dL (9-23)
[2023-07-21 09:00] VITALS: BP 173/89; PULSE 65; RESP 18; TEMP 97.8; O2SAT 95
[2023-07-21] MEDS ORDERED: NIFEdipine ER 30 MG TAB PO SCH (10:00)
[2023-07-21] MEDS: cefTRIAXone 1GM/50ML D5W 50 ML IV SCH (10:13)
[2023-07-21] MEDS ORDERED: NIFE1TAB31 PO (10:18)
[2023-07-21] MEDS: FUROSEMIDE 40 MG/4 ML VIAL IV SCH (11:10)
[2023-07-21] MEDS: SPIRONOLACTONE 25 MG TAB PO SCH (11:10)
[2023-07-21] MEDS: ASPirin 81 mg TAB PO SCH (11:10)
[2023-07-21] MEDS: CARVEDILOL 12.5 MG TAB PO SCH (11:11)
[2023-07-21 13:00] VITALS: BP 116/56; PULSE 73; RESP 18; TEMP 98.1; O2SAT 97
[2023-07-21] MEDS: VALSARTAN 80 MG TAB PO SCH (13:10)
[2023-07-21 15:45] VITALS: BP 172/97; PULSE 68; RESP 16; O2SAT 94
[2023-07-26 23:06] LABS: Metanephrine Ur 24hr 133 ug/24 hr (36-209); Normetanephr Ur 24h 797 ug/24 hr (131-612)
== END 2023-07-21 16:45 | disposition home or self-care (01) | DRG 199 ==
LOC: ER 05:37 → TELE 09:14 → TELE-CENTR 23:00
PROVIDERS: ADMIT Nurse Practitioner Acute Care; ATTEND Nurse Practitioner Acute Care
DX: I16.0 Hypertensive urgency (principal); I21.A1 Myocardial infarction type 2; I50.33 Acute on chronic diastolic (congestive) heart failure; N17.9 Acute kidney failure, unspecified; I13.0 Hypertensive heart and chronic kidney disease with heart failure and stage 1 through stage 4 chronic kidney disease, or unspecified chronic kidney disease; I08.1 Rheumatic disorders of both mitral and tricuspid valves; Z20.822 Contact with and (suspected) exposure to COVID-19; B34.9 Viral infection, unspecified; E66.01 Morbid (severe) obesity due to excess calories; N18.9 Chronic kidney disease, unspecified; Z68.43 Body mass index [BMI] 50.0-59.9, adult; Z79.899 Other long term (current) drug therapy; Z82.49 Family history of ischemic heart disease and other diseases of the circulatory system; Z83.3 Family history of diabetes mellitus; Z87.01 Personal history of pneumonia (recurrent); Z91.119 Patient's noncompliance with dietary regimen due to unspecified reason
CPT/HCPCS: 36415; 71045; 71046; 71275; 80048; 80053; 81001; 82088; 83735; 83835; 84244; 84484; 85025; 85379; 87086; 87426; 87804; 93005; 93306; 94640; G0378; J0696; J3490